=== PATIENT | male | born 1940 | race Caucasian/White ===

== ENCOUNTER 2022-11-14 12:16 | Emergency (ER) | payer MEDICARE, BC, SELFPAY ==
--- NOTE | ~2022-11-14 | XR_ITS ---
XR chest 2V DATE: 11/14/2022 12:47 INDICATION: Cough and shortness of breath for 4 days. Hyperglycemia. TECHNIQUE: PA and lateral views COMPARISON: None FINDINGS: Normal heart size. Aortic arch calcification. No hilar or mediastinal enlargement. No pulmonary infiltrate or consolidation, pleural effusion or pulmonary vascular congestion or pneumo thorax. 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 Degenerative spurring of the thoracic spine. IMPRESSION: No active cardiopulmonary disease Aortic atherosclerosis Reviewed, dictated and finalized at location B.
[2022-11-14 12:19] VITALS: BP 147/63; PULSE 68; RESP 18; TEMP 36.6; O2SAT 98
--- NOTE | 2022-11-14 14:55 | ED.GENADULT ---
HPI - General Adult General Chief complaint: Upper Respiratory Infection Stated complaint: cough/congestion/elevated blood glucose Time Seen by Provider: 11/14/22 13:54 History of Present Illness HPI narrative: 82-year-old male with history of diabetes presented to the emergency department for evaluation of nasal congestion and cough. Patient states symptoms started on Monday and have persisted throughout the weekend into today. Patient states his blood sugars have been running high so he was also concerned that he was having a infection of some sort. Patient denies any associated chest pain. Patient states he has had no shortness of breath. Patient's blood sugars prior to arrival running in the 400s. Patient does have a glucose monitor in place and they were 200 in the emergency department. Patient does take Lantus Humalog and Jardiance. Related Data Home Medications Medication Instructions Recorded Confirmed Claritin 10 mg PO DAILY 07/01/19 07/01/19 aspirin 81 mg chewable tablet 81 mg PO DAILY 07/01/19 07/01/19 insulin glargine 100 unit/mL 20 unit subcut HS 07/01/19 07/01/19 subcutaneous solution (Lantus U-100 Insulin) insulin lispro 100 unit/mL 1 sliding scale dose subcut 07/01/19 07/01/19 subcutaneous solution (Humalog USEASDIRECTD U-100 Insulin) lansoprazole 30 mg capsule,delayed 30 mg PO DAILY 07/01/19 07/01/19 release losartan 100 mg tablet 100 mg PO DAILY 07/01/19 07/01/19 nebivolol 20 mg tablet (Bystolic) 20 mg PO DAILY 07/01/19 07/01/19 rosuvastatin 40 mg tablet (Crestor) 40 mg PO DAILY 07/01/19 07/01/19 Allergies Allergy/AdvReac Type Severity Reaction Status Date / Time Penicillins Allergy Unknown Hives Verified 11/14/22 12:17 Review of Systems Review of Systems: All systems reviewed & are unremarkable except as noted in HPI and below PMFSH Past Medical History Medical History (Updated 11/14/22 @ 18:58 by Cayetano Mast MD) BPH (benign prostatic hyperplasia) Diabetes Glaucoma Hyperlipidemia Hypertension Melanoma Removed from his chest Seasonal allergies Surgical History Surgical History (Updated 07/01/19 @ 23:14 by Karissa Fernandez NP) H/O rectal polypectomy History of surgical removal of lesion Melanoma from the chest Family History Family History Mother Cerebrovascular accident Father Lung cancer Sibling Pancreatic cancer Social History Social History (Updated 07/01/19 @ 23:13 by Karissa Fernandez NP) Social History: The patient stated he lives with his and 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 The patient wishes to be a full code. He is retired from the [employer]. 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 He has 3 children Smoking packs per day: 1 Smoking cigarettes per day: 20.0 Years smoked: 32 Smoking pack-years: 32.00 Smoking status: Former smoker Tobacco type: cigarettes Alcohol intake: former Substance use: never Substance use type: does not use Living arrangements: with family Occupation/Education: retired Gender identity (if verbalized by the patient): Male Spiritual care concerns: No Agree to blood products: Yes Exam Narrative: APPEARANCE: Well appearing, no pain, no distress, well-nourished. HEAD: normocephalic, atraumatic. EYES: PERRLA/EOMI, conjunctivae clear. NOSE: Normal no drainage NECK: Supple. No adenopathy, no masses. RESPIRATORY: Airway patent, respirations nonlabored. Clear to auscultation bilaterally, no rales, rhonchi, wheezing. CARDIOVASCULAR: Regular rate and rhythm without murmurs rubs or gallops. ABDOMINAL: Soft, nontender, nondistended, normal bowel sounds MUSCULOSKELETAL: Moves all extremities. Strength/ROM intact, No edema, No calf tenderness. NEURO: Alert. Cranial nerves II through XII intact. SKIN: Warm, dry. Normal Color Course Course Emergency Course: 82-year-old male presented ED for evaluation of persistent cough. Aide
[2022-11-14] MEDS: ALBUTEROL SULFATE NEB 2.5 MG/3 ML INH INHALATION (15:03)
[2022-11-14 15:08] LABS: Influenza A QL RT-PCR Negative (Negative); Influenza B QL RT-PCR Negative (Negative); SARS-CoV-2 RNA PCR Negative (Negative)
[2022-11-14] MEDS: DOXYCYCLINE HYCLATE 100 MG TABLET PO (15:44)
[2022-11-14 15:48] VITALS: BP 143/76; PULSE 67; RESP 17; O2SAT 98
[2022-11-16 07:56] LABS: Glucose Point of Care 337 mg/dl (65-105)
== END 2022-11-14 15:49 | disposition home or self-care (01) ==
PROVIDERS: Emergency Provider Emergency Medicine
DX: J40 Bronchitis, not specified as acute or chronic (principal); E11.9 Type 2 diabetes mellitus without complications; I10 Essential (primary) hypertension; E78.5 Hyperlipidemia, unspecified; N40.0 Benign prostatic hyperplasia without lower urinary tract symptoms; H40.9 Unspecified glaucoma; Z87.891 Personal history of nicotine dependence; Z79.82 Long term (current) use of aspirin; Z79.4 Long term (current) use of insulin; Z20.822 Contact with and (suspected) exposure to COVID-19
CPT/HCPCS: 71046; 82948; 87636; 94640; 99283; A9270

== ENCOUNTER 2023-09-14 15:02 | Emergency (ER) | payer MEDICARE, BC, SELFPAY ==
--- NOTE | ~2023-09-14 | CT_ITS ---
EXAMINATION: CT brain wo con DATE: 09/14/2023 16:06 INDICATION: Right-sided headache. TECHNIQUE: Computed tomography (CT) of the head was performed without intravenous contrast. The mA wa s adjusted according to patient size. Iterative reconstruction technique was employed. The dose-lengt h product was 605.33 mGy-cm. COMPARISON: None FINDINGS: There is no intracranial hemorrhage, acute infarction, or abnormal intracranial mass lesion . The ventricles are normal in size. There are likely changes of ocular lens replacement surgeries. T here is mild mucosal thickening in the paranasal sinuses. The mastoid air cells are normal. IMPRESSION: 1. Normal brain. Reviewed, dictated and finalized at location A. IMPRESSION: 1. Normal brain.
[2023-09-14 15:07] VITALS: BP 144/120; PULSE 64; RESP 20; TEMP 36.7; O2SAT 96
[2023-09-14] MEDS: KETOROLAC 30 MG/ML VIAL (*BKC) IM (15:44)
[2023-09-14 16:13] LABS: Basophils Percent Auto 0.4 % (0.2-1.2); Eosinophils Absolute Auto 0.3 K/mm3 (0-0.3); Eosinophils Percent Auto 3.6 % (0-4.4); Hematocrit 40.2 % (42.0-52.0); Hemoglobin 13.5 g/dL (14.0-18.0); Immature Granulocyte Absolute 0.02 K/mm3 (0.00-0.031); Immature Granulocyte Percent A 0.3 % (0-0.5); Lymphocytes Absolute Auto 1.15 K/mm3 (0.9-3.2); Lymphocytes Percent Auto 16.1 % (18.3-44.2); Mean Corpuscular HGB Conc 33.6 g/dl (32-36); Mean Corpuscular Hemoglobin 30.3 pg (26-34); Mean Corpuscular Volume 90.1 fl (80-100); Mean Platelet Volume 10.1 fl (7.4-10.4); Monocytes Absolute Auto 0.5 K/mm3 (0.1-0.6); Monocytes Percent Auto 6.6 % (2.6-8.5); Neutrophils Absolute Auto 5.2 K/mm3 (1.3-6.7); Platelet Count Result 162 k/mm3 (150-375); Red Blood Count 4.46 M/mm3 (4.6-6.20); White Blood Count 7.1 K/mm3 (4.5-10.0)
[2023-09-14 16:24] LABS: Alanine Aminotransferase 18 U/L (6-50); Albumin Level 3.9 g/dL (3.5-5.1); Alkaline Phosphatase 84 U/L (38-126); Anion Gap 5 mmol/L (4-12); Aspartate Amino Transferase 26 U/L (17-59); Bilirubin,Total 0.5 mg/dL (0.2-1.3); Blood Urea Nitrogen 19 mg/dL (9-20); Carbon Dioxide 24 mmol/L (22-30); Chloride 106 mmol/L (98-107); Estimated CRCL calculation 48 ml/min; Estimated Glomerular Filt Rate > 60; Glucose 145 mg/dL (65-110); Potassium 4.4 mmol/L (3.4-5.0); Sodium 135 mmol/L (137-145)
[2023-09-14 16:48] LABS: Erythrocyte Sedimentation Rate 20 mm/hr (0-20)
[2023-09-14 17:25] VITALS: BP 145/98; PULSE 57; RESP 20; O2SAT 96
--- NOTE | 2023-09-14 17:42 | ED.EYEPROB ---
HPI - Eye Problem General Chief complaint: Eye Problems Stated complaint: headache with blurred vision Time Seen by Provider: 09/14/23 15:27 History of Present Illness HPI Narrative: Patient is an 82-year-old male who presents ER with a headache ongoing for last 2 days. Reports it feels like an ice cream headache has waxed and waned in intensity. He has tried no pain medication for. He does report mild blurring of his vision when he tries to drive due to the headache. No history of migraine. No trauma. He was going GI doctor but his PCP wanted him to come here to have a CT scan of his head so a left eye doctor. Patient does have history of glaucoma. 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 No flashes or floaters in the eye. Just occasional blurring. Related Data Home Medications Medication Instructions Recorded Confirmed Claritin 10 mg PO DAILY 07/01/19 07/01/19 aspirin 81 mg chewable tablet 81 mg PO DAILY 07/01/19 07/01/19 insulin glargine 100 unit/mL 20 unit subcut HS 07/01/19 07/01/19 subcutaneous solution (Lantus U-100 Insulin) insulin lispro 100 unit/mL 1 sliding scale dose subcut 07/01/19 07/01/19 subcutaneous solution (Humalog USEASDIRECTD U-100 Insulin) lansoprazole 30 mg capsule,delayed 30 mg PO DAILY 07/01/19 07/01/19 release losartan 100 mg tablet 100 mg PO DAILY 07/01/19 07/01/19 nebivolol 20 mg tablet (Bystolic) 20 mg PO DAILY 07/01/19 07/01/19 rosuvastatin 40 mg tablet (Crestor) 40 mg PO DAILY 07/01/19 07/01/19 Allergies Allergy/AdvReac Type Severity Reaction Status Date / Time Penicillins Allergy Unknown Hives Verified 09/14/23 15:14 Review of Systems Review of Systems: All systems reviewed & are unremarkable except as noted in HPI and below Constitutional: Constitutional: Reports no additional constitutional complaints ENT: Reports system reviewed and no additional complaints, except as documented Cardiovascular: Cardiovascular: Reports no additional cardiovascular complaints Respiratory: Respiratory: Reports no additional respiratory complaints Gastrointestinal: Gastrointestinal: Reports no additional gastrointestinal complaints Neurologic: Reports headache(s), Denies focal weakness, Denies loss of vision and Denies numbness PMFSH Past Medical History Medical History (Updated 09/14/23 @ 17:44 by Sebastian Lemus MD) BPH (benign prostatic hyperplasia) Diabetes Glaucoma Hyperlipidemia Hypertension Melanoma Removed from his chest Seasonal allergies Surgical History Surgical History (Updated 07/01/19 @ 23:14 by Karissa Fernandez NP) H/O rectal polypectomy History of surgical removal of lesion Melanoma from the chest Family History Family History Mother Cerebrovascular accident Father Lung cancer Sibling Pancreatic cancer Social History Social History (Updated 07/01/19 @ 23:13 by Karissa Fernandez NP) Social History: The patient stated he lives with his and 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 The patient wishes to be a full code. He is retired from the [employer]. 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 He has 3 children Smoking packs per day: 1 Smoking cigarettes per day: 20.0 Years smoked: 32 Smoking pack-years: 32.00 Smoking status: Former smoker Tobacco type: cigarettes Alcohol intake: former Substance use: never Substance use type: does not use Living arrangements: with family Occupation/Education: retired Gender identity (if verbalized by the patient): Male Spiritual care concerns: No Agree to blood products: Yes Exam Narrative: GENERAL: Well-appearing, well-nourished, and in no acute distress. HEAD: Normocephalic, atraumatic. EYES: PERRLA and EOMI. Right eye 20/30, left eye 20/40 with correction. Right eye pressure 13 mmHg and left eye pressure 9 mmHg. ENT: Mucous membranes moist. CHEST: Clear to auscultat
[2023-09-14 18:39] LABS: CRP 2.6 mg/dL (<1.0)
== END 2023-09-14 18:02 | disposition home or self-care (01) ==
PROVIDERS: Emergency Provider Emergency Medicine
DX: R51.9 Headache, unspecified (principal); N40.0 Benign prostatic hyperplasia without lower urinary tract symptoms; E11.39 Type 2 diabetes mellitus with other diabetic ophthalmic complication; I10 Essential (primary) hypertension; H42 Glaucoma in diseases classified elsewhere; Z85.820 Personal history of malignant melanoma of skin; Z87.19 Personal history of other diseases of the digestive system; Z87.891 Personal history of nicotine dependence; Z79.4 Long term (current) use of insulin; Z79.82 Long term (current) use of aspirin
CPT/HCPCS: 36415; 70450; 80053; 85025; 85652; 86140; 96372; 99284; J1885

== ENCOUNTER 2024-04-28 06:33 | Emergency (ER) | payer MEDICARE, BC, SELFPAY ==
--- NOTE | ~2024-04-28 | XR_ITS ---
Portable chest x-ray Comparison: 11/14/2022 Clinical History: Nausea and vomiting Findings: Lungs are clear, without focal consolidation or pleural effusion. Cardiomediastinal silho uette is stable. Bones and soft tissues are unremarkable. Impression: Clear lungs. Reviewed, dictated and finalized at location . N ROOM HOUSEPERSON Impression: Clear lungs.
--- NOTE | ~2024-04-28 | CT_ITS ---
CT of the Abdomen and Pelvis: Indication: Epigastric pain Technique: 2.5 mm axial scans were obtained through the abdomen and pelvis following intravenous adm inistration of 100 cc of Omnipaque 350. Dose reduction technique was used on this scan by utilizing a utomated exposure control and iterative reconstruction technique. The dose-length product (DLP) was 4 29.62 mGy-cm. Findings: Scans through the lung bases-a partially imaged focal airspace consolidation in the medial left lower lobe. The liver, spleen, pancreas, adrenals and kidneys are within normal limits. Gallstone present. No karlee dence of aortic aneurysm. No lymphadenopathy. No bowel obstruction or bowel wall thickening. Probable duodenal diverticulum at the distal duodenum. Images through the pelvis were performed. Urinary bladder unremarkable. Prostate gland mildly enlarge d. Small bilateral fat-containing inguinal hernias are present. No ascites. There is extensive degene rative spondylosis of the lumbar spine. Impression: Partially imaged focal airspace consolidation medial left lower lobe. Focal pneumonia is a considerat ion. Small bilateral fat-containing inguinal hernias. Reviewed, dictated and finalized at location . R AUTHORIZATION NURSE Impression: Partially imaged focal airspace consolidation medial left lower lobe. Focal pne umonia is a consideration. Small bilateral fat-containing inguinal hernias.
--- NOTE | ~2024-04-28 | CT_ITS ---
CT Scan of the Chest without Contrast: Clinical Indication: Right middle lobe pneumonia Technique: Contiguous sections were acquired throughout the chest without intravenous contrast. Dose reduction technique was used on this scan by utilizing automated exposure control and iterative recon struction technique. The dose-length product (DLP) was 259.15 mGy-cm. Findings: There is no evidence of any significant mediastinal, hilar or axillary lymphadenopathy. The mediastin al soft tissues appear normal. Minimal pericardial effusion noted. There is no evidence of pleural or pericardial effusion. There is patchy airspace consolidation left lower lobe, compatible with pneumonia. Right lung clear. Left upper lobe clear. Images through the upper abdomen reveal gallstone. Impression: Patchy left lower lobe pneumonia. Cholelithiasis. Reviewed, dictated and finalized at location . GER [employer] Impression: Patchy left lower lobe pneumonia. Cholelithiasis.
[2024-04-28 06:37] VITALS: BP 216/76; PULSE 98; RESP 20; TEMP 36.7; O2SAT 96
[2024-04-28 11:25] LABS: Glucose Point of Care 434 mg/dl (65-105)
[2024-04-28 11:28] LABS: Basophils Percent Auto 0.2 % (0.2-1.2); Hematocrit 40.7 % (42.0-52.0); Hemoglobin 13.3 g/dL (14.0-18.0); Immature Granulocyte Absolute 0.06 K/mm3 (0.00-0.031); Immature Granulocyte Percent A 0.5 % (0-0.5); Lymphocytes Absolute Auto 0.37 K/mm3 (0.9-3.2); Lymphocytes Percent Auto 2.9 % (18.3-44.2); Mean Corpuscular HGB Conc 32.7 g/dl (32-36); Mean Corpuscular Hemoglobin 30.6 pg (26-34); Mean Corpuscular Volume 93.6 fl (80-100); Mean Platelet Volume 10.3 fl (7.4-10.4); Monocytes Absolute Auto 0.7 K/mm3 (0.1-0.6); Monocytes Percent Auto 5.2 % (2.6-8.5); Neutrophils Absolute Auto 11.7 K/mm3 (1.3-6.7); Neutrophils Percent Auto 91.2 % (45.5-73.1); Platelet Count Result 179 k/mm3 (150-375); Red Blood Count 4.35 M/mm3 (4.6-6.20); Red Cell Distribution Width 12.3 % (11.5-14.5); White Blood Count 12.8 K/mm3 (4.5-10.0)
[2024-04-28 11:29] VITALS: BP 160/73; PULSE 91; RESP 16; TEMP 36.9; O2SAT 98
[2024-04-28] MEDS: SODIUM CHLORIDE 0.9% IV 1,000 ML 999 ML IV CONT (11:30)
[2024-04-28] MEDS: MAG HYDROX/AL HYDROX/SIMETH 30 ML UDC PO (11:30)
[2024-04-28] MEDS: FAMOTIDINE 20 MG/2 ML VIAL IV PUSH (11:31)
[2024-04-28] MEDS: ONDANSETRON INJ 4 MG/2 ML VIAL IV PUSH (11:31)
[2024-04-28] MEDS: HYDROmorphone HCL INJ (*CRX) 1 MG/ML SYR 0.5 MG IV PUSH (11:31)
[2024-04-28 11:33] LABS: Add Urine Microscopic? NO; Appearance Urine Clear (Clear); Bilirubin Urine Negative (Negative); Blood Urine Negative (Negative); Color Urine Yellow (Yellow); Glucose Urine UA 3+ mg/dL (Negative); Ketones Urine 2+ mg/dL (Negative); Leukocyte Esterase Ur Negative LEU/UL (Negative); Nitrate Urine Negative (Negative); Protein Urine Negative (Negative); Specific Grav Ur 1.033 (1.001-1.035); Urobilinogen Urine 0.2 mg/dL (<2.0); pH Urine 5.5 (5.0-9.0)
[2024-04-28 11:37] LABS: Lactic Acid Reflex 1.8 mmol/L (0.7-2.0)
[2024-04-28 11:39] LABS: Alanine Aminotransferase 25 U/L (6-50); Albumin Level 4.1 g/dL (3.5-5.1); Alkaline Phosphatase 119 U/L (38-126); Anion Gap 9 mmol/L (4-12); Aspartate Amino Transferase 32 U/L (17-59); Blood Urea Nitrogen 23 mg/dL (9-20); Calcium 8.9 mg/dL (8.4-10.2); Carbon Dioxide 23 mmol/L (22-30); Chloride 102 mmol/L (98-107); Estimated CRCL calculation 45 ml/min; Estimated Glomerular Filt Rate > 60; Glucose 428 mg/dL (65-110); Lipase 37 U/L (23-300); Magnesium 1.9 mg/dL (1.6-2.3); Phosphorus 3.4 mg/dL (2.5-4.5); Potassium 4.8 mmol/L (3.4-5.0); Sodium 134 mmol/L (137-145)
[2024-04-28 11:48] LABS: Prothrombin Time 13.8 Seconds (11.1-14.7)
[2024-04-28 11:49] LABS: Partial Thromboplastin Time 29.2 Seconds (22.3-36.8)
[2024-04-28 11:50] LABS: Troponin I < 0.012 ng/mL (0.000-0.034)
[2024-04-28 12:33] LABS: Influenza A QL RT-PCR Negative (Negative); Influenza B QL RT-PCR Negative (Negative); RSV RNA, RT-PCR Negative (Negative); SARS-CoV-2 RNA PCR Negative (Negative)
--- NOTE | 2024-04-28 14:02 | ED_ITS ---
HPI - General Adult General Chief complaint: Nausea/Vomiting/Diarrhea Stated complaint: n/v/d, sugar issues Time Seen by Provider: 04/28/24 10:54 History of Present Illness HPI narrative: This is an 83-year-old male presenting ED with chief complaint of epigastric pain. Patient has been having intermittent burning epigastric pain for the last several months and is actually scheduled for an endoscopy tomorrow at [facility]. However he came in this morning because overnight he started to have nausea and vomiting that was associated with his burning epigastric pain. He notes 1 episode of dark stools. Denies fevers chills chest pain or difficulty breathing. Patient is on a PPI. No other symptoms. Related Data Home Medications Medication Instructions Recorded Confirmed Claritin 10 mg PO DAILY 07/01/19 07/01/19 aspirin 81 mg chewable tablet 81 mg PO DAILY 07/01/19 07/01/19 insulin glargine 100 unit/mL 20 unit subcut HS 07/01/19 07/01/19 subcutaneous solution (Lantus U-100 Insulin) insulin lispro 100 unit/mL 1 sliding scale dose subcut 07/01/19 07/01/19 subcutaneous solution (Humalog USEASDIRECTD U-100 Insulin) lansoprazole 30 mg capsule,delayed 30 mg PO DAILY 07/01/19 07/01/19 release losartan 100 mg tablet 100 mg PO DAILY 07/01/19 07/01/19 nebivolol 20 mg tablet (Bystolic) 20 mg PO DAILY 07/01/19 07/01/19 rosuvastatin 40 mg tablet (Crestor) 40 mg PO DAILY 07/01/19 07/01/19 Allergies Allergy/AdvReac Type Severity Reaction Status Date / Time Penicillins Allergy Unknown Hives Verified 04/28/24 06:41 [facility] Past Medical History Medical History (Updated 04/28/24 @ 14:16 by Josiah Patten MD) BPH (benign prostatic hyperplasia) Diabetes Glaucoma Hyperlipidemia Hypertension Melanoma Removed from his chest Seasonal allergies Surgical History Surgical History (Updated 07/01/19 @ 23:14 by Karissa Fernandez NP) H/O rectal polypectomy History of surgical removal of lesion Melanoma from the chest Family History Family History Mother Cerebrovascular accident Father Lung cancer Sibling Pancreatic cancer Social History Social History (Updated 07/01/19 @ 23:13 by Karissa Fernandez NP) Social History: The patient stated he lives with his and 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 The patient wishes to be a full code. 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 He has 3 children Smoking packs per day: 1 Smoking cigarettes per day: 20.0 Years smoked: 32 Smoking pack-years: 32.00 Smoking status: Former smoker Tobacco type: cigarettes Alcohol intake: former Substance use: never Substance use type: does not use Living arrangements: with family Occupation/Education: retired Gender identity (if verbalized by the patient): Male Spiritual care concerns: No Agree to blood products: Yes Exam Narrative: APPEARANCE: No apparent distress. Head: atraumatic. EYES: EOMI, NOSE: Atraumatic NECK: Trachea midline RESPIRATORY: No increased rate of breathing, clear to auscultation CARDIOVASCULAR: RRR, ABDOMINAL: Tenderness palpation the epigastric area, no guarding or rebound RECTAL EXAM: Brown stool in the rectal vault, Hemoccult negative MUSCULOSKELETAl: No obvious deformities NEURO: Alert. Moving 4/4 extremities SKIN:: Warm, dry. Normal color PSYCHIATRIC: Normal affect Course Vital Signs Vital signs: Vital Signs Temperature 98.0 F 04/28/24 06:37 Pulse Rate 98 04/28/24 06:37 Respiratory Rate 20 04/28/24 06:37 Blood Pressure 216/76 H 04/28/24 06:37 Pulse Oximetry 96 04/28/24 06:37 Oxygen Delivery Room Air 04/28/24 06:37 Temperature 98.4 F 04/28/24 11:29 Pulse Rate 91 04/28/24 11:29 Respiratory Rate 16 04/28/24 11:29 Blood Pressure 160/73 H 04/28/24 11:29 Pulse Oximetry 98 04/28/24 11:29 Oxygen Delivery Room Air 04/28/24 06:37 Medical Decision Making MDM Narrative Medical decision making narrative: -Course: 83-year-old male presenting ED with nausea vomiting and epigastric pain. CT abdomen pelvis showed nothing in the abdomen that was concerning although it did catch possible pneumonia in the left lower lobe. CT diagnostic chest showed patchy infiltrates. Patient has no respiratory symptoms. When this was discussed with the patient turns out he is being followed by [employer] and has these imaged once a year. Patient was also concerned about dark stools. He had a brown stool on rectal exam. Hemoccult negative. His hemoglobin is 13.3. No concerns for massive GI bleed. He does have follow- up with his GI physician tomorrow to get an EGD and I have told him to bring this up with them in the morning. Re-evaluation patient's pain is improved. He is already on a PPI and I will add Carafate. Discharged follow-up with his GI physician tomorrow. Given return precautions for severe abdominal pain, bloody stools or bloody vomiting. -DDX includes but is not limited to: Peptic ulcer disease, gastritis, lower lobe pneumonia, GI bleed -Co-morbidities complicating care: Gastritis -Independent interpretation of studies: Labs reviewed, Imaging reviewed -Interventions: Zofran, Dilaudid, Maalox, normal saline -Shared decision making / Disposition: Discharged -RX Carafate Vital Signs Vital Signs: Vital Signs Temperature 98.0 F 04/28/24 06:37 Pulse Rate 98 04/28/24 06:37 Respiratory Rate 20 04/28/24 06:37 Blood Pressure 216/76 H 04/28/24 06:37 Pulse Oximetry 96 04/28/24 06:37 Oxygen Delivery Room Air 04/28/24 06:37 Temperature 98.4 F 04/28/24 11:29 Pulse Rate 91 04/28/24 11:29 Respiratory Rate 16 04/28/24 11:29 Blood Pressure 160/73 H 04/28/24 11:29 Pulse Oximetry 98 04/28/24 11:29 Oxygen Delivery Room Air 04/28/24 06:37 Lab Data 04/28/24 11:20 04/28/24 11:20 Labs: Lab Results 04/28/24 04/28/24 04/28/24 Range/Units 11:18 11:20 11:49 WBC 12.8 H (4.5-10.0) K/mm3 RBC 4.35 L (4.6-6.20) M/mm3 Hgb 13.3 L (14.0-18.0) g/dL Hct 40.7 L (42.0-52.0) % MCV 93.6 (80-100) fl MCH 30.6 (26-34) pg MCHC 32.7 (32-36) g/dl RDW 12.3 (11.5-14.5) % Plt Count 179 (150-375) k/mm3 MPV 10.3 (7.4-10.4) fl Immature Gran % (Auto) 0.5 (0-0.5) % Neut % (Auto) 91.2 H (45.5-73.1) % Lymph % (Auto) 2.9 L (18.3-44.2) % [place] % (Auto) 5.2 (2.6-8.5) % Eos % (Auto) 0.0 (0-4.4) % Baso % (Auto) 0.2 (0.2-1.2) % Lymph # (Auto) 0.37 L (0.9-3.2) K/mm3 [place]linger # (Auto) 0.7 H (0.1-0.6) K/mm3 Eos # (Auto) 0.0 (0-0.3) K/mm3 Baso # (Auto) 0.0 (0.0-0.1) K/mm3 Abs Immat Gran (auto) 0.06 H (0.00-0.031) K/mm3 Absolute Neuts (auto) 11.7 H (1.3-6.7) K/mm3 Absolute Nucleated RBC 0.000 (0.0-0.012) K/mm3 Nucleated RBC % 0.0 (0.0-0.2) % PT 13.8 (11.1-14.7) Seconds INR 1.0 APTT 29.2 (22.3-36.8) Seconds Sodium 134 L (137-145) mmol/L Potassium 4.8 (3.4-5.0) mmol/L Chloride 102 (98-107) mmol/L Carbon Dioxide 23 (22-30) mmol/L Anion Gap 9 (4-12) mmol/L BUN 23 H (9-20) mg/dL Creatinine 1.00 (0.7-1.3) mg/dL Estim Creat Clear Calc 45 ml/min Estimated GFR > 60 (59 - ) Glucose 428 H (65-110) mg/dL POC Capillary Glucose 434 H (65-105) mg/dl Lactic Acid 1.8 (0.7-2.0) mmol/L Calcium 8.9 (8.4-10.2) mg/dL Phosphorus 3.4 (2.5-4.5) mg/dL Magnesium 1.9 (1.6-2.3) mg/dL Total Bilirubin 1.0 (0.2-1.3) mg/dL AST 32 (17-59) U/L ALT 25 (6-50) U/L Alkaline Phosphatase 119 (38-126) U/L Troponin I < 0.012 (0.000-0.034) ng/mL Total Protein 7.0 (6.3-8.2) g/dL Albumin 4.1 (3.5-5.1) g/dL Lipase 37 (23-300) U/L Urine Color Yellow (Yellow) Urine Appearance Clear (Clear) Urine pH 5.5 (5.0-9.0) Ur Specific [place] 1.033 (1.001-1.035) Urine Protein Negative (Negative) mg/dL Urine Glucose (UA) 3+ H (Negative) mg/dL Urine Ketones 2+ H (Negative) mg/dL Ur Blood (Man) Negative (Negative) Urine Nitrate Negative (Negative) Urine Bilirubin Negative (Negative) Urine Urobilinogen 0.2 (<2.0) mg/dL Leukocyte Esterase Rfl Negative (Negative) ESDRAS/UL Influenza A (RT-PCR) Negative (Negative) Influenza B (RT-PCR) Negative (Negative) RSV (RT-PCR) Negative (Negative) SARS-CoV-2 RNA (RT-PCR) Negative (Negative) Discharge Plan Discharge Clinical Impression: Gastritis Patient Disposition: Home, Self-Care Condition: Stable Instructions: Antibiotic Form, Gastritis (DC), Diet for Stomach Ulcers and Gastritis (ED) Additional Instructions: You seen in the emergency department for epigastric abdominal pain. Believe this is due to gastritis or peptic ulcer disease. Please follow-up tomorrow morning at your scheduled EGD for further workup. Continue taking your acid inhibitor and add Carafate 3 times daily. Return if you develop severe pain, bloody vomiting stools Prescriptions: New sucralfate [Carafate] 1 gram tablet 1 g PO TID Qty: 90 0RF No Action doxycycline hyclate 100 mg capsule 100 mg PO BID 7 Days Qty: 14 0RF benzonatate 100 mg capsule 100 mg PO BID PRN (Reason: cough) Qty: 14 0RF Lantus U-100 Insulin 100 unit/mL Solution 20 unit SUBCUT HS lansoprazole 30 mg Capsule,Delayed Release(Dr/Ec) 30 mg PO DAILY aspirin 81 mg Tablet,Chewable 81 mg PO DAILY insulin lispro [Humalog U-100 Insulin] 100 unit/mL Solution 1 sliding scale dose SUBCUT USEASDIRECTD Rx Instructions: 12- 15 UNITS TID WITH MEALS AND 5 UNITS Q HS losartan 100 mg Tablet 100 mg PO DAILY rosuvastatin [Crestor] 40 mg Tablet 40 mg PO DAILY Bystolic 20 mg Tablet 20 mg PO DAILY Claritin 10 mg PO DAILY meclizine 12.5 mg tablet 6.25 mg PO TID PRN (Reason: dizziness) Qty: 20 0RF Rx Instructions: You can take 1/2 by mouth three times per day as needed for dizziness Follow-up/Referrals: Karissa Tena OD [Primary Care Provider] -
[2024-04-28 14:32] LABS: Troponin I < 0.012 ng/mL (0.000-0.034)
[2024-04-28 15:09] VITALS: BP 149/71; PULSE 89; RESP 16; TEMP 36.5; O2SAT 98
== END 2024-04-28 15:10 | disposition home or self-care (01) ==
PROVIDERS: Emergency Provider Emergency Medicine
DX: K29.70 Gastritis, unspecified, without bleeding (principal); Z20.822 Contact with and (suspected) exposure to COVID-19; I10 Essential (primary) hypertension; E11.39 Type 2 diabetes mellitus with other diabetic ophthalmic complication; H42 Glaucoma in diseases classified elsewhere; E78.5 Hyperlipidemia, unspecified; N40.0 Benign prostatic hyperplasia without lower urinary tract symptoms; Z85.820 Personal history of malignant melanoma of skin; Z86.0100 Personal history of colon polyps, unspecified; Z87.891 Personal history of nicotine dependence; Z79.82 Long term (current) use of aspirin; Z79.4 Long term (current) use of insulin; Z79.899 Other long term (current) drug therapy
CPT/HCPCS: 36415; 71045; 71250; 74177; 80053; 81003; 82948; 83605; 83690; 83735; 84100; 84484; 85025; 85610; 85730; 87637; 96361; 96374; 96375; 99284; A9270; J1171; J2405; J7030; Q9967

== ENCOUNTER 2025-02-17 06:35 | Emergency (ER) | payer MEDICARE, BC, SELFPAY ==
--- OUTSIDE RECORDS SUMMARY | 2018-06-15 04:45 | XMS_ITS | Continuity of Care Document ---
Author Organization [facility] Address [address] [facility] ut[address] Lizama [address] [place] [phone] Phone Care Team Providers Care Director Of Enterprise Applications Name Role Phone Silvino Oliva MD Unavailable Unavailable Allergies, Adverse Reactions, Alerts Substance Reaction Status Criticality PENICILLIN Active No Information Medications Medication Instructions Dosage Effective Dates (start - stop) Status Comments aspirin 81 mg tablet,delayed release take 1 tablet by oral route every day 81 MG - Active Bystolic 5 mg tablet take 1 tablet by or al route every day 5 MG - Active Humalog U-100 Insulin 100 unit/mL subcutaneous solution inject 1 unit by subcutaneous route every day per prescriber's instructions. Insulin dosing requires individualization. 1 unit - Active lansoprazole 30 mg capsule,delayed release take 1 capsule by oral route every day before a meal 30 MG - Active Lantus U-100 Insulin 100 unit/mL subcutaneous solution inject 1 unit by subcutaneous route every day per prescriber's instructions. Insulin dosing requires individualization. 1 unit - Active losartan 100 mg tablet take 1 tablet by oral route every day 100 MG - Active pravastatin 80 mg tablet take 1 tablet by oral route every day 80 MG - Active Procedures Procedure Date After Cataract Laser Surgery No Charge Refraction Post-op Follow-up Visit No Charge Refraction After Cataract Laser Surgery Eye Exam & Treatment No Charge Refraction Post-op Follow-up Visit Post-op Follow-up Visit Remove Cataract, Post Op Care 8 Remove Cataract, Insert Lens,Comanaged F IOLMaster-Professional Post-op Follow-up Visit No Charge Refraction Post-op Follow-up Visit Remove Cataract, Post Op Care 8 Remove Cataract, Insert Lens,Comanaged J IOLMaster-Professional No Charge Refraction IOLMaster-Technical No Charge Orbscan Eye Exam, New Patient Advance Directives Directive Yes / No Effective Date File Name No Information Encounters Encounter Description Practice Location Reason(s) For Visit Diagnoses Date Provider Providers Copied on Encounter [facility], [address] [place] [address] [address], [place], [place], [id number], tel:[phone] SEC [place] Professional 3 week s/p YAG PC (chief complaint) Encntr for f/u exam aft trtmt for cond oth than malig neoplmOther secondary cataract, right eye 9 Pj Dubois. [address], [facility] [place], [id number], [place]. tel:[phone] Referring Provider: Krystal Rodriguez, [facility] [address], [address]. tel:[phone] [facility], [address], [place], [place], [id number], [place] tel:[phone] SEC [place] Professional Yag eval (chief complaint) Presence of intraocular lensOther secondary cataract, bilateralOpt ic cupping of both eyesFuchs' corneal dystrophyTyp e 1 diabetes mellitus without complication sABMD (anterior basement membrane dystrophy) 8 Pj Dubois. [address], [facility] A, [place], [place], [id number], [place]. tel:[phone] Referring Provider: Krystal Rodriguez, [address], [address]. tel:[phone] [facility], [address] [place] [address] [address], [place], [place], [id number], tel:[phone] SEC [place] Professional No Information Dec-0 6-201 8 Edin Kevin. [address] [place] [address] Drive, [address], [place], [place], [id number], . tel:[phone] Referring Provider: Krystal Rodriguez, [address], [address]. tel:[phone] [facility], [address] [place] [address] [address], [place], [place], [id number], tel:[phone] SEC [place] Professional Post-Op (chief complaint) No Information Mar-0 9-201 8 Pj Dubois. [address] [facility] [place], [id number], [place]. tel:[phone] Referring Provider: Krystal Rodriguez, [address], [address]. tel:[phone] [facility], [address] [place] [address] [address], [place], [place], [id number], tel:[phone] [place] Post-Op (chief complaint) No Information Feb-2 0-201 8 Pj Dubois. [address] [employer], [facility] [place], [id number], [place]. tel:[phone] Referring Provider: Krystal Rodriguez, [address], [address]. tel:[phone] [facility], [address] [place] [address] [address], [place], [place], [id number], [place] tel:[phone] SEC [place] Professional Post-Op (chief complaint) No Information Feb-0 8-201 8 Sally Golden. [address] [facility], [address], [place], [id number], . tel:[phone] Referring Provider: Krystal Rodriguez, [address], [address]. tel:[phone] [facility], [address] [place] [address] [address], [place], [place], [id number], tel:[phone] [place] [address] No Information 0 8 Pj Dubois. [address] [facility], [facility] [place], [id number], [place]. tel:[phone] Referring Provider: Krystal Rodriguez, [address], [facility]. tel:[phone] [facility], [address] [place] [address] [address], [place], [place], [id number], [place] tel:[phone] [facility] N Sam No Information 0 8 Pj Dubois. [address] [facility], [facility] [place], [place], [id number], [place]. tel:[phone] Referring Provider: Krystal Rodriguez, [address], [address]. tel:[phone] [facility], [address] [place] [address] [address], [place], [place], [id number], [place] tel:[phone] SEC Harsh SHEILA Professional 2 wk CE PO (chief complaint) No Information 8 Sally Golden. [address] [facility], [facility] [place], [place], [id number], . tel:[phone] Referring Provider: Krystal Rodriguez, [address], [address]. tel:[phone] [facility], [address] [place] [address] [address], [place], [place], [id number], [place] tel:[phone] SEC Harsh SOSA Professional 1 wk CE PO (chief complaint) No Information 8 Pj Dubois. [address] [facility], [address] [place], [id number], [place]. tel:[phone] Referring Provider: Krystal Rodriguez, [address], [address]. tel:[phone] [facility], [address] [place] [address] [address], [place], [place], [id number], [place] [phone] SEC Harsh SOSA Professional Post-Op (chief complaint) No Information 8 Sally Knightel. [address] [facility], [facility] [address], [place], [place], [address], [place]. tel:[phone] Referring Provider: Krystal Rodriguez, [address], [address]. tel:[phone] [facility], [address], [place], [place], [address], [place] [phone] [facility] No Information 8 Pj Dubois. [address] [facility], [address] [place], [address], [place]. tel:[phone] Referring Provider: Krystal Rodriguez, [address], [address]. tel:[phone] [facility], [address], [place], [place], [address], [place] [phone] SEC Sridhar Reyes No Information 8 Pj Dubois. [address] [facility], [address] [place], [id number], [place]. tel:[phone] Referring Provider: Krystal Rodriguez, [address], [address]. tel:[phone] [facility], [address] [place] [address], [id number], tel:[phone] SEC Harsh SOSA Professional Cataract evaluation (chief complaint) No Information Dec-0 7 Pj Dubois. [address] [facility], [facility] [place], [place], [id number], . tel:[phone] Referring Provider: Krystal Rodriguez, [address], [address]. tel:[phone] [facility], [address] [place] [address], [id number], tel:[phone] SEC [place] SHEILA Professional No Information Dec-0 Pj Dubois. [address] [facility] [place], [facility] [place], [place], [id number], . tel:[phone] Family History Family Member Type Diagnosis Age At Onset Mother Problem (finding) glaucoma Payers Payer name Insurance type Covered constitution party ID Authoriza tion(s) [place] [id number] [id number] Social History Type Description Quantity Date Captured Comments Alcohol Use Details No Caffeine Use Details coffee and soda 9 Tobacco Use Status Ex-cigarette smoker 019 Smoking Status Former smoker Smoking Tobacco Use Details Cigarette: Age Stopped: 48
Cigar: Age Stopped: 48
Pipe: Age Stopped: 48 Cigarette: No Details Available Cigar: No Details Available Pipe: No Details Available Sex Male Chief Complaint And Reason For Visit From encounter dated '06/15/2018 09:45'. 3 week s/p YAG PC (chief complaint). Description: The 77 year old male presents for evaluation of 3week s/p YAG PC in the left eye and YAG PC OD today. Patient states VA seems fine with the left eyesince the laser not much of a change. c/o with the right eye is difficulty seeing in bright light and glare at night. Patient uses Rhopressa qd OU last used @ last night. (unable to pull medication up in med module) Reason For Referral Reason For Referral No Information Plan Of Treatment Date Type Action Status Patient Education Learning About YAG Lase r Capsulotomy completed Patient Education Learning About YAG Lase r Capsulotomy completed History Of Present Illness Encounter Date Complaint History Of Prese nt Illness 3 week s/p YAG PC The 77 year ol d male presents for evaluation of 3 week s/p YAG PC in the left eye and YAG PC OD today. Patient states VA seems fine with the left eye since the laser not much of a change. c/o with the right eye is difficulty seeing in bright light and glare at night. Patient uses Rhopressa qd OU last used @ last night. (unable to pull medication up in med module) Yag eval The 77 year old male presents for evaluation of Yag eval in the left eye. Hx of PC IOL OU, PCO OS, POAG OU, and Punctate Keratitis OS. Pt using Rhopressa OU bid. (Rhopressa is not in the medication module) Pt states difficult to drive at night due to headlight glare, and difficult to see small print. DVA and NVA gradual decrease OS x 8 mos. 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 Post-Op The 76 year old male presents for a 1 month post op CE OS. Patient is pseudo ou. Patient is finished with drops. Patient states ou is doing good. Post-Op The 76 year old male presents for a 1 week post op CE OS. Patient is using Pred, Ketorolac and Vigamox tid OS. Patient states ou is doing good. Post-Op The 76 year old male presents for a 1 day post op CE OS. Patient to begin Pred and Vigamox qid OS and Ketorolac tid OS. Patient denies any pain or discomfort. 2 wk CE PO The 76 year old male presents for 2 wk CE PO in the right eye. Pt is IDDM I. Pt reports he is using Ketorolac TID OD, and Pred TID OD. Pt reports he hasn't been using the Brimonidine and he is unsure if he was supposed to be using them. Pt denies any pain, irritation or discomfort today, OU. Pt reports he can see a lot better since CE, OD. Pt reports he still has a hard time driving at night due to glare from oncoming headlights and troube reading small print up close, OS, x several mos now, even when he is wearing his gls. 1 wk CE PO The 76 year old male presents for 1 wk CE PO in the right eye. Pt is IDDM II. Pt reports he is using Vigamox TID OD, Pred TID OD, and Ketorolac TID OD. Pt reports he no longer uses the Brimonidine. Pt reports he can see a lot better since CE, OD. Pt denies any pain, irritation or discomfort today, OU. Post-Op The 76 year old male presents for a 1 day post op CE OD. Patient to begin Pred, Vigamox and Ketorolac qid OD. Patient denies any pain or discomfort. Cataract evaluation The 76 year old male presents for Cataract evaluation in the right eye and left eye. Type 1 Diabetic. Hx POAG OU, Cataracts OU. Pt states can see ok, but over the last yr keeps needing stronger glasses, has to use a microscope to see smaller print, avoids night driving due to glare of headlights. Pt not currently using any gtts, has been perscribed a gtts for ocular hypertension, but has not taken it yet, denies any pain or discomfort at this time. Pt having trouble doing close work due to vision loss. Functional Status Date Functional Assessmen t No Information Instructions Date Instruction Ovidio zarate Impression/Plan Impression/Plan Impression/Plan Impression/Plan - 1 week PO s/p Phaco with IOL OS:- IOL in good position; healing well.- Patient advised they no longer need to wear the shield over the eye at bedtime.- Medication instillation and post op instructions reviewed.- Patient will return in 3 weeks or sooner with problems. Follow up - As scheduled Impression/Plan - Po st-op instructions given. Instructed to continue Vigamox and Prednisolone qid and Ketorolac tid in left eye.Return in 1 week. Related to Post-op cataract surgery left eye Combined forms of ag e-related cataract, left eye - Educational material given Related to Combined forms of age-related cataract, left eye Impression/Plan - Co ntinue Pred and Ketorolac until out. OK to proceed with left cataract surgery.Aware may still need glasses with prism and near correction. Post-op cataract gilmar maxwell right eye - Medication use reviewed Related to Post-op cataract surgery right eye Post-op cataract gilmar maxwell right eye - Post op instructions reviewed and understood by patient Related to Post-op cataract surgery right eye Impression/Plan - On e week post-op s/p CE/PCIOL OD- IOL in great position; healing well- IOP well controlled- Activities restrictions and shield use reviewed- Medication instillation and post op instructions reviewed- Patient will return as scheduled, sooner if any problems. Follow up - Patient will return as scheduled, sooner if any problems. Impression/Plan - In stilled one drop of Combigan OD.Post-op instructions given. Instructed to continue Vigamox and Prednisolone qid and Ketorolac tid in right eye.Return in 1 week. Related to Post-op cataract surgery right eye Age-related nuclear cataract, bilateral - Surgical risks, alts and benefits discussed Related to Age-related nuclear cataract, bilateral Impression/Plan - Di abetes (Type I) Without Ocular Complications- No background diabetic retinopathy and no signs of neovascularization noted.- Ocular and systemic benefits of good blood sugar control discussed with patient.- Dr. Morgan is in contact with PCP yearly. Significant Cataracts OU- Cataracts OU account for patient's visual complaints.- Discussed all R/B/A pertaining to cataract surgery.- The procedure and recovery from cataract extraction were discussed.- Recommend phacoemulsification with intraocular lens implant.- Lifestyle lenses discussed. - Significant astigmatism OU.- The possibility that patient may still need to wear glasses to correct astigmatism and/or for reading vision following surgery reviewed and understood by patient.- Discussed Fuch's dystrophy and the possibility of increased healing time after CE.- The patient is not a good candidate for specialty lenses due to type I diabetes and double vision without prism.- ECP not recommended at this time.- Schedule CE OD with Standard IOL for distance, followed by CE OS with Standard IOL for distance. 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 Morgan.- Dr. Morgan started on Brimonidine, patient has not picked up Rx yet.- IOP WNL today.- Discussed normal tension glaucoma.- Begin Brimonidine OU as prescribed by Dr. Morgan.- ECP not recommended at this time.- Continue to monitor with Dr. Morgan.*Possible Schugarcaine*Referred by Dr. Morgan Follow up - Schedule CE OD with Standard IOL for distance, followed by CE OS with Standard IOL for distance. Assessments Type Assessment Date assessment Encntr for f/u exam aft trtmt fo r cond oth ebonie gonzalez assessment Other secondary cataract, right eye Patient Care Teams Name Effective Dates (start - stop) Status Members No Information
--- OUTSIDE RECORDS SUMMARY | 2023-04-27 08:30 | XMS_ITS | Continuity of Care Document ---
Author Organization [facility] Address [address] [facility] [address] [place] [address] Phone Care Team Providers Care Electrification Adviser Name Role Phone Izabel Velez OT Unavailable Unavailable Procedures Procedure Date Therapeutic Activities Neuromuscular Re-Ed Therapeutic Exercise Hot or Cold Pack Progress Note Therapeutic Activities Neuromuscular Re-Ed Therapeutic Exercise Hot or Cold Pack Therapeutic Activities Neuromuscular Re-Ed Hot or Cold Pack Therapeutic Activities Neuromuscular Re-Ed Hot or Cold Pack Therapeutic Activities Therapeutic Exercise Manual Therapy Hot or Cold Pack Therapeutic Activities Therapeutic Exercise Hot or Cold Pack FO pip/dip with joint/spring prefab Therapeutic Activities Neuromuscular Re-Ed Therapeutic Exercise Hot or Cold Pack Progress Note Therapeutic Activities Therapeutic Exercise Manual Therapy Hot or Cold Pack Therapeutic Activities Neuromuscular Re-Ed Hot or Cold Pack Orthotic Mgmt And Training Subsequent En counter Therapeutic Activities Hot or Cold Pack Orthotic Mgmt And Training Subsequent En counter Doc neg elder mal no plan OT Evaluation Low Complexity Therapeutic Activities Orthotic Mgmt and Training WHFO rigid w/o joints CF Advance Directives Directive Yes / No Effective Date File Name No Information Encounters Encounter Description Practice Location Reason(s) For Visit Diagnoses Date Provider Providers Copied on Encounter [facility], [address], [place], [place], [id number], tel:[phone] [place] No Information 3 Agustin Paiz. . Referring Provider: Sandra Urena [facility] [address]B/12A, [place], [address]. tel:[phone] [place] [address] [address], [place], [place], [id number], tel:[phone] [place] No Information 3 Agustin Paiz. . Referring Provider: Sandra Urena [facility] [address]/6B/12, [place], [address]. tel:[phone] [place] [address] [address], [place], [id number], tel:[phone] [place] No Information 3 Agustin Paiz. . Referring Provider: Sandra Urena [address], [place], [address]. tel:[phone] [place] [address] [address], [place], [place], [id number], tel:[phone] [place] No Information 3 Agustin Paiz. . Referring Provider: Sandra Urena [address]B/12A, [place], [address]. tel:[phone] [place] [address], [address], [place], [place], [id number], [place] tel:[phone] [place] No Information 3 Agustin Izabel. . Referring Provider: Farhad Loera, Joaquin[address] [facility] [address]6B/12A, [place], [address]. tel:[phone] [place] [address], [place], [place], [id number], [place] tel:[phone] [place] No Information 3 Agustin Izabel. . Referring Provider: Farhad Loera, Sandra [facility] [address]A/6B/12A, [place], [address]. tel:[phone] [place] [address], [address], [place], [place], [id number], [place] tel:[phone] [place] No Information 3 Agustin Izabel. . Referring Provider: Farhad Loera, Joaquin[address] [facility] [address]A/6B/12A, [place], [address]. tel:[phone] [place] [address], [place], [place], [id number], [place] tel:[phone] [place] No Information 3 Agustin Izabel. . Referring Provider: Farhad Loera, Joaquin[address] [facility] [address]A/6B/12A, [place], [address]. tel:[phone] [place] [address], [address], [place], [id number], [place] tel:[phone] [place] No Information 3 Agustin Izabel. . Referring Provider: Farhad Loera, [address]B/12A, [place], [address]. tel:[phone] [place] [address], [address], [place], [id number], [place] tel:[phone] [place] No Information 3 Agustin Paiz. . Referring Provider: Farhad Loera [address], [place], [address]. tel:[phone] [facility], [address] [facility] [address], [place], [place], [id number], tel:[phone] [place] No Information 3 Agustin Paiz. . Referring Provider: Farhad [facility]era [address] [facility] [address], [place], [address]. tel:[phone] Family History Family Member Type Diagnosis Age At Onset No Information Payers Payer name Insurance type Covered democrat ID Authorherberta dakota(s) Medicare [place] [id number] [facility] [id number] Social History Type Description Quantity Date Captured Comments Sex Male Smoking Status No Information Chief Complaint And Reason For Visit No Information Reason For Referral Reason For Referral No Information History Of Present Illness Encounter Date Complaint History Of Prese nt Illness No Information Functional Status Date Functional Assessmen t No Information Instructions Date Instruction Additional Infor mation Prescribed activity/exercise edu cation Related to Overweight Dietary needs education Related to Overweight Assessments Type Assessment Date No Information Patient Care Teams Name Effective Dates (start - stop) Status Members No Information
--- NOTE | ~2025-02-17 | XR_ITS ---
EXAMINATION: XR chest 1V portable DATE: 02/17/2025 06:58 INDICATION: Cough TECHNIQUE: frontal view of the chest was obtained. COMPARISON: Chest radiograph and CT dated 04/28/2024 FINDINGS: The lungs are clear with no focal airspace opacities, pulmonary edema, pleural effusion or pneumothorax. The cardiomediastinal silhouette is normal. IMPRESSION: 1. No acute cardiopulmonary disease. Reviewed, dictated and finalized at location A.
--- OUTSIDE RECORDS SUMMARY | 2025-02-17 06:38 | XMS_ITS ---
Author Organization [facility] Address [address] [place] [address] Care Team Providers Care Ventilation Mechanic Name Role Phone Elizabet De León MD Primary Care Provider Brandi Armenta DO Unavailable [phone] Shanel Lowery Unavailable [phone] Active Problems Patient Care Coordination No te Formatting of this note migh t be different from the original. This is a 77-year-old male with a medical history significant for diabetes, hypertension, melanoma, and hyperlipidemia. He is a former smoker and underwent a lung cancer screening CT scan in November of 2014 that demonstrated an 8 mm ground- glass nodule in the right upper lobe. There is also a 5 mm noncalcified nodule in the right upper lobe as well. He continued to undergo annual screening and his CT scans have remained stable until his most recent 1 which was on 01/08/2018 that demonstrated an interval growth of the right upper lobe ground-glass opacity now measuring 12 mm in size. He is here for further surgical evaluation. 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 Sx resolved with IVF - Request bMRI today - CTM. He will notify me if sx return. Dupuytren's contracture of right hand 07/16/2019 Overview (07/16/2019): Added automatically from request for surgery [id number] Assessment & Plan (08/11/2019 9:46 PM SALES RECEPTIONIST): Plan for operative release with Dr. Loera. - F/u with Dr. Loera for surgery Sensorineural hearing loss (SNHL) of both ears 0 03/08/2019 Assessment & Plan (08/11/2019 9:41 PM SALES RECEPTIONIST): Cont f/u with ENT/ audiology Assessment & Plan (03/08/2019 1:41 PM CDT): This has been present for several years. He is now interested in hearing aids. We will set him up with a hearing aid evaluation as he is likely to benefit from them. Repeat audiogram in 1-2 years. Erectile dysfunction due to arterial insufficien cy 01/15/2018 History of melanoma in situ 09/22/2015 Elevated prostate specific antigen (PSA) 015 Assessment & Plan (08/11/2019 9:45 PM SALES RECEPTIONIST): F/b Dr. Tinsley. Mildly elevated PSA with abnormal WILLIE. - Pt elected to continue to be screened. Dr. Tinsley advised prostate MRI if PSA were to remain elevated at or above 5. Seborrheic keratosis, inflamed 07/15/2014 Melanoma in situ of trunk 02/11/2014 Assessment & Plan (08/11/2019 9:42 PM SALES RECEPTIONIST): Chest, s/p WLE. - Cont f/u with Dr. Canseco - Rec photoprotection, ABCDEs Seborrheic keratoses 11/12/2013 HTN (hypertension), benign 10/26/2013 Overview (09/15/2016): BENIGN HYPERTENSION Assessment & Plan (08/11/2019 9:48 PM SALES RECEPTIONIST): Above goal today, home pressures 130-140/60-80. - Given hx of dizziness, will plan to continue losartan 100mg every day for now - He will continue to monitor his blood pressures. Dyslipidemia 10/26/2013 Overview (01/15/2018): Hyperlipidemia LDL goal < 100 Assessment & Plan (08/11/2019 9:42 PM SALES RECEPTIONIST): Controlled on current regimen - Cont rosuvastatin 40mg every day Type 1 diabetes mellitus 10/26/2013 Overview (01/15/2018): Diabetes mellitus type 1, controlled Assessment & Plan (08/11/2019 9:41 PM SALES RECEPTIONIST): Control is stable. F/b Dr. Armenta. Medication regimen: lantus 20 units qhs and change unit:CHO to 1unit:8g at breakfast and 1unit:10g with each meal + 1 unit for every 40 > 120. Counseled regarding need to limit snacking between meals or discuss how to cover with short acting insulin. HbA1c Lab Results Component Value Date HGBA1C 8.4 05/21/2019 Microalbumin/Creatinine: Undetectable 05/2019 ACEi/ARB prescribed yes Statin prescribed yes Foot/extremity exam performed 07/2019, protective sensation intact Retinopathy screening performed 07/2019, mild Pt counseled regarding diet, physical activity, medication adherence Spinal stenosis of lumbar region 04/19/2013 Osteoarthritis of lumbar spine 04/19/2013 Actinic keratosis 09/17/2012 Knee pain 01/31/2011 Ground glass opacity present on imaging of lung Current Treatment and Therapy Plans No current plan information found. Past Treatment and Therapy Plans No past plan information found. Lifetime Dose Tracking * Chemical Lifetime Dose Automatic Entry Manual Entr y Fluoro Time 9 minutes 0 minutes 9 minutes Air kerma at the reference point (Ka,r) 415 mGy 0 mGy 415 mGy DLP 3,939 mGycm 3,939 mGycm 0 mGycm DAP 23.18 Gy-cm2 0 Gy-cm2 23.18 Gy-cm2 Resolved Problems Problem Noted Date Diagnosed Date Resolved Date Acute maxillary sinusitis 11/27/2017 Pneumonia of both lower lobe s due to infectious organism 11/27/2017 08/11/2019 Lentigo 01/18/2017 08/11/2019 Aphthous ulcer 07/20/2016 08/11/2019 Benign neoplasm of skin of trunk 07/20/2016 08/11/2019 Angular cheilitis 05/19/2015 08/11/2019 Suture granuloma 03/18/2014 08/11/2019 Allergic contact dermatitis 01/07/2014 08/11/2019 Impetigo 01/07/2014 08/11/2019 Chronic pain 04/19/2013 08/11/2019 Encounter for preventive health examination 02/22/2010 08/11/2019
--- OUTSIDE RECORDS SUMMARY | 2025-02-17 06:38 | XMS_ITS | Clinical Summary ---
Author Organization [facility] Address [address] [place] [address] Care Team Providers Care Corn Breeder Name Role Phone Brandi Armenta DO Primary Care Provider Source Comments [facility],non-owned Affiliates and Associated Physician Practices is amultiple site organization consisting of ambulatory clinics and hospital sitesin [place], [place], [place] and [place]. This disclosure is being madepursuant to the Care Everywhere program and may not contain all information available regarding this patient. Last updated 18.[facility] Allergies Active Allergy Reactions Criticality Noted Date Comments Penicillins Rash Low 02/08/2016 Medications * Be aware that medications may not be up to date on this document. Alwaysverify current medications with the patient. insulin lispro (HUMALOG) 100 UNIT/ML cartridge Ac tive Insulin Glargine (LANTUS SC) Active PRAVASTATIN SODIUM PO Active Aspirin (ASPIR-81 PO) Active LANSOPRAZOLE PO Acti ve LOSARTAN POTASSIUM PO Active Active Problems No known active problems Social History Tobacco Use Types Packs/Day Years Used Date Smoking Tobacco: Never Assessed Sex and Gender Information Value Date Recorded Sex Assigned at Not on file Legal Sex Male 8:22 AM CDT Gender Identity Not on file Sexual Orientation Not on file Last Filed Vital Signs Vital Sign Reading Time Taken Comments Blood Pressure 132/74 02/08/2016 9:08 AM CDT Pulse 72 02/08/2016 9:08 AM CDT Temperature 36.7 C (98 F) 02/08/2016 9:08 AM CDT Respiratory Rate 20 02/08/2016 9:08 AM CDT Oxygen Saturation - - Inhaled Oxygen Concentration - - Weight 74.8 kg (165 lb) 02/08/2016 9:08 AM CDT Height 170.2 cm (5' 7) 02/08/2016 9:08 AM CDT Body Mass Index 25.84 02/08/2016 9:08 AM CDT Plan of Treatment Health Maintenance Due Date Last Done Comments DTAP/TDAP/TD VACCINES (1 - Tdap) 1957 PNEUMOCOCCAL VACCINE 50+ (1 of 1 - PCV) 1988 ZOSTER VACCINE (1 of 2) 1988 Respiratory Syncytial Virus (RSV) Vaccine Pt: or over 60 yrs (1 - 1-dose 75+ series) 2013 DEPRESSION SCREENING 06/12/2024 COVID-19 VACCINE (1 - 2023-2 5 season) 2025 INFLUENZA VACCINE (#1) 2025 HEPATITIS B VACCINE Aged Out No longe r eligible based on patient's age to complete this topic HIB VACCINE Aged Out No longer eligi ble based on patient's age to complete this topic HPV VACCINE Aged Out No longer eligi ble based on patient's age to complete this topic MENINGOCOCCAL (Group B) VACC INE SHARED DECISION-MAKING Aged Out No longer eligibl e based on patient's age to complete this topic MENINGOCOCCAL GROUPS A/C/Y/W VACCINE Aged Out No longer eligible b ased on patient's age to complete this topic Insurance [facility]IC[facility] MEDICARE MEDICARE [facility] Care Teams Corn Breeder Relationship Specialty Start Date End Date Brandi Armenta DO PCP - General Immunology 02/08/16
--- OUTSIDE RECORDS SUMMARY | 2025-02-17 06:38 | XMS_ITS | Encounter Summary ---
Author Organization [facility] Address [address] [place] [address] Care Team Providers Care Bisque Finisher Name Role Phone Brandi Armenta DO Primary Care Provider No, Physician Primary Care Provider [phone] Elizabet De León MD Primary Care Provider Brandi Armenta DO Unavailable [phone] Shanel Lowery Unavailable [phone] Encounter Details Date Type Department Care Team (Late st Contact Info) Description 12/07/2017 Community Orders [facility] EpicCare Link Brandi Armenta DO [address] [place] [address] Pneumonia of both lower lobes due to infectious organism (CMS/HCC) (Primary Dx); Lung nodule Social History Tobacco Use Types Packs/Day Years Used Date Smoking Tobacco: Former Alcohol Use Standard Drinks/Week Comments No 0 (1 standard drink = 0.6 oz pur e alcohol) Sex and Gender Information Value Date Recorded Sex Assigned at Not on file Legal Sex Male 12:14 AM RECYCLING SPECIALIST Gender Identity Male 06/27/2020 6:23 AM RECYCLING SPECIALIST Sexual Orientation Not on file documented as of this encounter Plan of Treatment Scheduled Procedures Name Priority Associated Diagnoses Date/Ti me ESOPHAGOGASTRODUODENOSCOPY Open Access Gastroesophageal reflux disease, unspecified whether esophagitis present documented as of this encounter Results * CT Chest WO Contrast (01/08/2018 10:22 AM CDT) Anatomical Region Laterality Modality Body N/A Computed Tomogra phy 01/08/2018 11:2 6 AM CDT Impressions 01/08/2018 12:20 PM CDT 1. Interval growth of right upper lobe groundglass opacity measuring 12 mm may represent minimally invasive adenocarcinoma spectrum lesion. Recommend follow up with low-dose CT chest in one year to monitor. Electronically signed by: Dominic Pisano M.D. Narrative 01/08/2018 12:20 PM CDT EXAMINATION: CT chest without contrast HISTORY: 77-year-old male with past medical history of lung RADS category 2 pulmonary nodule TECHNIQUE: Computed tomography of the chest was performed without intravenous contrast according to standard protocol. COMPARISON: CT chest without contrast dated 01/06/2017 FINDINGS: A right upper lobe groundglass opacity measuring 12 mm with ill-defined margins and no solid components is noted at slide position: -71. This pulmonary nodule has increased in size relative to prior study and may represent minimally invasive adenocarcinoma (previously 9 mm). A right upper lobe solid, calcified pulmonary nodule measuring 5 mm in average diameter noted slight position: -151 is unchanged in size relative to prior study and represents a granuloma. No evidence of focal consolidation, pleural effusions, edema, or pneumothorax. The trachea appears normal. No hilar, mediastinal, supraclavicular, or axillary lymphadenopathy is demonstrated. The heart size is normal without pericardial effusion. The spleen, pancreas, adrenal glands, stomach, and proximal small bowel appear normal. Procedure Note Dominic Pisano MD PhD - 01/08/2018 EXAMINATION: CT chest without contrast HISTORY: 77-year-old male with past medical history of lung RADS category 2 pulmonary nodule TECHNIQUE: Computed tomography of the chest was performed without intravenous contrast according to standard protocol. COMPARISON: CT chest without contrast dated 01/06/2017 FINDINGS: A right upper lobe groundglass opacity measuring 12 mm with ill-defined margins and no solid components is noted at slide position: -71. This pulmonary nodule has increased in size relative to prior study and may represent minimally invasive adenocarcinoma (previously 9 mm). A right upper lobe solid, calcified pulmonary nodule measuring 5 mm in average diameter noted slight position: -151 is unchanged in size relative to prior study and represents a granuloma. No evidence of focal consolidation, pleural effusions, edema, or pneumothorax. The trachea appears normal. No hilar, mediastinal, supraclavicular, or axillary lymphadenopathy is demonstrated. The heart size is normal without pericardial effusion. The spleen, pancreas, adrenal glands, stomach, and proximal small bowel appear normal. IMPRESSION: 1. Interval growth of right upper lobe groundglass opacity measuring 12 mm may represent minimally invasive adenocarcinoma spectrum lesion. Recommend follow up with low-dose CT chest in one year to monitor. Electronically signed by: Dominic Pisano M.D. Brandi Armenta DO IMG CT PROCEDURES Final Result documented in this encounter Visit Diagnoses Diagnosis Pneumonia of both lower lobes due to infectious organism- Primary Lung nodule Other diseases of lung, not elsewhere classified Pneumonia of both lower lobes due to infectious organism Lung nodule Other diseases of lung, not elsewhere classified documented in this encounter Additional Health Concerns Infection Onset Date Last Indicated Resolved Time COVID: Suspected 05/06/2022 05/06/2022 05/06/2022 10:08 AM RECYCLING SPECIALIST documented as of this encounter Care Teams Bisque Finisher Relationship Specialty Start Date End Date Brandi Armenta DO PCP - General 11/03/16 07/03/19 No, Physician PCP - General 07/04/19 07/07/19 Elizabet De León MD [address] [place] [address] PCP - General Internal Medicine 07/08/19 Brandi Armenta DO [address] [facility] [address] [place] [address] Consulting Physician Endocrinology Diabetes & Metabolism 03/19/19 Shanel Lowery PA [id number] [place] [address] Physician Supervisor [employer] Colon and Rectal Surgery 05/16/24 documented as of this encounter
--- OUTSIDE RECORDS SUMMARY | 2025-02-17 06:38 | XMS_ITS | Clinical Summary ---
Author Organization [facility] Address [address] [place] [address] Care Team Providers Care Station Inspector Name Role Phone Elizabet De León MD Primary Care Provider Brandi Armenta DO Unavailable [phone] Shanel Lowery Unavailable [phone] Allergies Active Allergy Reactions Criticality Noted Date Comments Penicillins Rash Medium 02/08/2016 Reaction: Rash, HIVES Medications loratadine (CLARITIN) 10 mg tabletIndicatio ns:Allergic Rhinitis Take 1 tablet (10 mg total) by mouth every morning Active cholecalciferol , vitamin D3, (VITAMIN D3 ORAL)Indication s:supplement Take 1 tablet by mouth every morning Active CALCIUM CITRATE ORALIndications :supplement Take 600 mg by mouth every morning Take 2 tablets Active acetone, urine, test (acetone, urine, test) strip Use as directed if blood sugar is >300 100 strip 11 07/03/19 21 Active sildenafiL (VIAGRA) 50 mg tablet Take one tablet prior to intercourse 15 tablet 06/08/20 21 Active nebivoloL (BYSTOLIC) 20 mg tablet TAKE ONE (1) TABLET (20 MG TOTAL) BY MOUTH DAILY 90 tablet 3 09/06/19 23 Active pen needle, diabetic 32 gauge x needle Using one daily to inject insulin 100 each 3 12/10/19 23 Active BD Insulin Syringe Ultra-Fine 0.3 mL 30 gauge x 1/2 syringe USE FOR INJECTIONS FIVE (5) TIMES DAILY 450 each 1 11/07/19 24 Active tamsulosin (FLOMAX) 0.4 mg extended release capsule Take 1 capsule (0.4 mg total) by mouth daily 30 capsule 11 03/25/20 24 025 Active glucagon (Baqsimi) 3 mg/actuation spray,non-aeros ol Administer 1 spray into one nostril as needed (hypoglycemia) 1 each 03/26/20 24 Active psyllium husk 6 gram/6 gram powder Take 1-2 tsp daily to help bulk stools. 300 g 2 05/17/20 24 Active tadalafiL (CIALIS) 5 mg tablet TAKE 1 TABLET (5 MG TOTAL) BY MOUTH DAILY 30 tablet 11 05/21/20 24 Active losartan (COZAAR) 100 mg tablet TAKE ONE (1) TABLET (100 MG TOTAL) BY MOUTH DAILY 90 tablet 1 06/23/19 25 Active Rocklatan 0.02-0.005 % drops INSTILL 1 DROP INTO BOTH EYES IN THE EVENING 07/31/19 25 Active amLODIPine (NORVASC) 5 mg tablet Take 1.5 tablets (7.5 mg total) by mouth daily 135 tablet 3 09/05/19 25 026 Active finasteride (PROSCAR) 5 mg tablet TAKE 1 TABLET (5 MG TOTAL) BY MOUTH DAILY 30 tablet 11 11/20/19 25 026 Active rosuvastatin (CRESTOR) 40 mg tablet TAKE ONE TABLET BY MOUTH DAILY 90 tablet 1 11/16/19 25 Active insulin lispro (HumaLOG) 100 unit/mL vial for injection INJECT 29-03-20, MAXIMUM DOSE 70 UNITS DAILY WITH SLIDING SCALE. 60 mL 1 12/28/19 25 Active flash glucose scanning reader (FreeStyle Tasia 2 [place]) miscIndications :Type 1 diabetes mellitus with other specified complication,Lo ng-term insulin use (HCC) USE DIRECTED FOR CHECKING BLOOD GLUCOSE 1 each 01/04/20 25 Active flash glucose sensor (FreeStyle Tasia 2 Sensor) kitIndications: Type 1 diabetes mellitus with other specified complication,Lo ng-term insulin use (HCC) USE DIRECTED FOR CHECKING BLOOD GLUCOSE; CHANGE EVERY 14 DAYS 6 kit 1 01/15/20 25 Active TRUEplus Insulin 0.3 mL 31 gauge x 5/16 syringeIndicati ons:Type 1 diabetes mellitus with other specified complication,Lo ng-term insulin use (HCC) USE FOR INJECTIONS FIVE (5) TIMES DAILY 450 each 01/25/20 25 Active Synthroid 75 mcg tablet TAKE ONE (1) TABLET (75 MCG TOTAL) BY MOUTH DAILY 30 tablet 4 01/28/20 25 Active TRESIBA 100 unit/mL (3 mL) pen for injectionIndica tions:Type 1 diabetes mellitus with other specified complication INJECT 0.2 ML (20 UNITS TOTAL) UNDER THE SKIN DAILY 15 mL 02/12/20 25 025 Active omeprazole (PriLOSEC) 40 mg capsule TAKE 1 CAPSULE (40 MG TOTAL) BY MOUTH TWO (2) (TWO) TIMES a DAY 180 capsule 02/14/20 25 Active Synthroid 75 mcg tablet TAKE ONE (1) TABLET (75 MCG TOTAL) BY MOUTH DAILY 30 tablet 07/11/19 025 Discontinued BD Insulin Syringe Ultra-Fine 0.3 mL 31 gauge x 5/16 syringeIndicati ons:Type 1 diabetes mellitus with other specified complication,Lo ng-term insulin use (HCC) USE FOR INJECTIONS FIVE (5) TIMES DAILY 450 each 08/05/19 25 025 Discontinued TRESIBA 100 unit/mL (3 mL) pen for injection INJECT 0.2 ML (20 UNITS TOTAL) UNDER THE SKIN DAILY 15 mL 11/26/19 25 025 Discontinued omeprazole (PriLOSEC) 40 mg capsule Take 1 capsule (40 mg total) by mouth 2 (two) times a day 180 capsule 11/29/19 25 025 Discontinued Active Problems Patient Care Coordination No te [...] pain 06/16/2023 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 Sx resolved with IVF - Request bMRI today - CTM. He will notify me if sx return. Dupuytren's contracture of right hand 07/16/2019 Overview (07/16/2019): Added automatically from request for surgery [id number] Assessment & Plan (08/11/2019 9:46 PM CONSOLE MANAGER): Plan for operative release with Dr. Loera. - F/u with Dr. Loera for surgery Sensorineural hearing loss (SNHL) of both ears 0 03/08/2019 Assessment & Plan (08/11/2019 9:41 PM CONSOLE MANAGER): Cont f/u with ENT/ audiology Assessment & [...] situ 09/22/2015 Elevated prostate specific antigen (PSA) 07/10/2 015 Assessment & Plan (08/11/2019 9:45 PM CONSOLE MANAGER): F/b Dr. Tinsley. Mildly elevated PSA with abnormal WILLIE. - Pt elected to continue to be screened. Dr. Tinsley advised prostate MRI if PSA were to remain elevated at or above 5. Seborrheic keratosis, inflamed 07/15/2014 Melanoma in situ of trunk 02/11/2014 Assessment & Plan (08/11/2019 9:42 PM CONSOLE MANAGER): Chest, s/p WLE. - Cont f/u with Dr. Canseco - Rec photoprotection, ABCDEs Seborrheic keratoses 11/12/2013 HTN (hypertension), benign 10/26/2013 Overview (09/15/2016): BENIGN HYPERTENSION Assessment & Plan (08/11/2019 9:48 PM CONSOLE MANAGER): Above goal today, home pressures 130-140/60-80. - Given hx of dizziness, will plan to continue losartan 100mg every day for now - He will continue to monitor his blood pressures. Dyslipidemia 10/26/2013 Overview (01/15/2018): Hyperlipidemia LDL goal < 100 Assessment & Plan (08/11/2019 9:42 PM CONSOLE MANAGER): Controlled on current regimen - Cont rosuvastatin 40mg every day Type 1 diabetes mellitus 10/26/2013 Overview (01/15/2018): Diabetes mellitus type 1, controlled Assessment & Plan (08/11/2019 9:41 PM CONSOLE MANAGER): Control is stable. F/b Dr. Armenta. Medication [...] sensation intact Retinopathy screening performed 07/2019, mild DRTommy Pt counseled regarding diet, physical activity, medication adherence Spinal stenosis of lumbar region 04/19/2013 Osteoarthritis of lumbar spine 04/19/2013 Actinic keratosis 09/17/2012 Knee pain 01/31/2011 Ground glass opacity present on imaging of lung Resolved Problems Problem Noted Date Diagnosed Date [...] Encounter for preventive health examination 02/22/2010 08/11/2019 Encounters Date Type Department Care Team Description 5 Results Follow-Up [facility] G[facility] [address] [place] [address] Medical Office Building 4, [address] [place] [phone] Marichuy Austin RN Surgical pathology 5 11:30 AM CDT - 5 12:00 PM CDT Surgery [facility] [address] [address] Cain Leal MD ESOPHAGOGASTRODUODENOSCOPY BIOPSY 5 11:03 AM CDT Anesthesia Event [facility] [address] [address] Roman Restreop MD 5 10:16 AM CDT - 5 12:14 PM CDT Hospital Encounter [facility] [address] [address] Cain Leal MD Gastroesophageal reflux disease, unspecified whether esophagitis present Discharge Disposition: Discharge to home or self care 5 Telephone [facility] Endocrinology Metabolism and Lipid [address] [facility] [place] [place] [address]nd [facility] [address] [place] [address] Elisha Pandey RMA prior auth- Tasia reader 5 Results Follow-Up [facility] Endocrinology Metabolism and Lipid [address] [facility] Floor 1, [address] [place] [phone] Karissa Lopez MD POCT hemoglobin A1c, CBC with auto differential, Comprehensive metabolic panel, Additional followed-up results: 8 5 1:00 PM CDT Office Visit [facility] Endocrinology Metabolism and Lipid [address] [place] [address] Brandi Armenta DO Type 1 diabetes mellitus without complication (HCC) (Primary Dx); Iron deficiency; 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; Vitamin D deficiency; Other hyperlipidemia; Essential hypertension; Hypocalcemia; Pulmonary nodule 5 Telephone [facility] Medicine Gastroenterology [address] [place] [address] Office Building [address], [address] [place] [address] Lupe Foster RN GI new rx sent 5 Telephone [facility]astroenter[facility] [address] [place] [address] Office Building [address], [address] [place] [phone] Lupe Foster RN GI return call 5 11:00 AM CDT Procedure visit [facility] Medicine Dermatology [address] [facility] [address] [place] [phone] Pamela Foy MD PhD Basal cell carcinoma of face (Primary Dx) from Last 3 Months Immunizations Immunization Administration Dates Next Due Influenza, Quad, Adjuvantate d, Intramuscular 03/29/2021 Influenza, Quadrivalent, Hig h Dose, Preservative Free, Intrr 02/21/2020 Influenza, Split 03/01/2010 Influenza, Trivalent, High D ose, Split, Preservative Free, Intramuscular 02/17/2018,02/08/2017,02/01/2017,02/15,02/18/2015 Influenza, Trivalent, Preser vative Free, Intramuscular 06/12/2008 Pfizer SARS-CoV-2 Monovalent Vaccination (12+ Yrs) ALONSO-READY TO USE 12/08/2021 Pfizer SARS-CoV-2 Monovalent Vaccination (12+ Yrs) PURPLE 04/30/2021,08/13/2020,07/23/2020 Surgical History Surgery Date Site/Laterality Comments SKIN CANCER EXCISION 06/12/2013 - 06/11/2014 malignant melanoma CARDIAC CATHETERIZATION 11/03/2021 Left COLONOSCOPY UPPER GASTROINTESTINAL ENDOSCOPY Medical History Medical History Date Comments Personal history of in-situ neoplasm of other site H/O melanoma in situ - (Adde d by ViVu) Erectile dysfunction Diabetes mellitus (HCC) Hypertension Hyperlipidemia Angular cheilitis 05/19/2015 GERD (gastroesophageal reflux disease) Melena Gastric polyp Family History Medical History Relation Name Comments Pancreatic cancer Brother 2 Cancer -pa ncreatic; Cause of : Cancer -pancreatic Cancer Brother 3 Family history of malignant neoplasm - (Added by [employer] Conv) Cancer Father Family history of malignant neoplasm - (Added by [employer] Conv) Lung cancer Father Cancer -lung; C ause of : Cancer -lung Lung disease Father Family history of lung disease - (Added by [employer] Conv) Stroke Mother Stroke; Cause o f : Stroke/Ischemic Stroke - (Added by [employer] Conv) No Known Problems Son Anesthesia problems Neg Hx Relation Name Status Comments Brother 1 (Age 55) Brother 2 Brother 3 Father (Age 79) Mother (Age 89) Son Alive Social History Tobacco Use Types Packs/Day Years Used Date Smoking Tobacco: Former Cigarettes 07 12 1 959 - 1989 Passive Smoke Exposure: Past Smokeless Tobacco: Never Tobacco Cessation:Counseling Given: Not Answered Alcohol Use Standard Drinks/Week Comments Not Currently 0 (1 standard drink = 0.6 oz pur e alcohol) RARE AUDIT-C Answer Date Recorded Q1: How often do you have a drink containing alcohol? Never 01/06/2025 Q2: How many drinks containi ng alcohol do you have on a typical day when you are drinking? Patient does not drink Q3: How often do you have si x or more drinks on one occasion? Never 01/06/2025 PHQ-2 Answer Date Recorded PHQ-2 Score 0 07/30/2019 Personal Safety Answer Date Recorded Have you ever been in or are you currently in a harmful physical or emotional relationship or is someone making you feel afraid or unsafe? Denies 01/06/2025 Sex and Gender Information Value Date Recorded Sex Assigned at Not on file Legal Sex Male 12:14 AM CONSOLE MANAGER Gender Identity Male 06/27/2020 6:23 AM CONSOLE MANAGER Sexual Orientation Not on file Obstetrics History Last Filed Vital Signs Vital Sign Reading Time Taken Comments Blood Pressure 122/85 01/06/2025 11:39 AM CDT Pulse 61 01/06/2025 11:39 AM CDT Temperature 36.2 C (97.2 F) 01/06/2025 11:19 AM CDT Respiratory Rate 17 01/06/2025 11:29 AM CDT Oxygen Saturation 95% 01/06/2025 11:39 AM CDT Inhaled Oxygen Concentration - - Weight 81.6 kg (180 lb) 01/06/2025 10:27 AM CDT Height 170.2 cm (5' 7) 01/06/2025 10:27 AM CDT Body Mass Index 28.19 01/06/2025 10:27 AM CDT Plan of Treatment Scheduled Procedures Name Priority Associated Diagnoses Date/Ti me ESOPHAGOGASTRODUODENOSCOPY Open Access Gastroesophageal reflux disease, unspecified whether esophagitis present Health Maintenance Due Date Last Done Comments Foot Exam 1940 Dilated Eye Exam 1948 DTaP/Tdap/Td Vaccine (1 - Tdap) 1949 Hepatitis B Screening 1956 Pneumococcal vaccine 65+ (1 of 2 - PCV) 1957 Zoster Vaccine (1 of 2) 1988 Well Visit 65+ 10/12/2003 Depression Screening 07/30/2020 07/30/2019 Covid-19 Vaccine (5 - 2024-2 6 season) 2025 12/08/2021, 04/30/2021, 08/13/2020, Additional history exists Influenza Vaccine (#1) 2025 , 02/21/2020, 02/17/2018, Additional history exists Albumin Creatinine Ratio, Urine 03/27/2025 03/27/2024, 08/17/2023, 09/13/2022, Additional history exists Hemoglobin A1C 06/03/2025 12/02/2024, 03/0 10/2024, 03/26/2024, Additional history exists Lipid Panel 12/11/2025 12/11/2024, 03/12, 08/17/2023, Additional history exists TSH Level 12/11/2025 12/11/2024, 03/12, 08/17/2023, Additional history exists eGFR 12/11/2025 12/11/2024, 030 12/2024, 03/27/2024, Additional history exists Fall Risk Assessment 01/06/2026 01/06/2025 Procedures Procedure Name Priority Date/Time Associated Diagnosis Comments SURGICAL PATHOLOGY Routine 01/06/2025 11:13 AM CDT Gastroesophageal reflux disease, unspecified whether esophagitis present ESOPHAGOGASTRODUODENOSCOPY BIOPSY 01/06/2025 11:03 AM CDT Gastroesophageal reflux disease, unspecified whether esophagitis present EGD 01/06/2025 10:56 AM CDT POCT GLUCOSE DEVICE Routine 01/06/2025 10:37 AM CDT IGA Routine 12/11/2024 1:06 PM CDT Iron deficiency ENDOMYSIAL ANTIBODY, IGA TITER Routine 0 12/11/2024 1:04 PM CDT Iron deficiency TISSUE TRANSGLUTAMINASE, IGA Routine 07/2024 1:04 PM CDT Iron deficiency FERRITIN Routine 12/11/2024 1:04 PM CDT Iron deficiency IRON PROFILE W/ IBC Routine 12/11/2024 1:04 PM CDT Iron deficiency T4, FREE Routine 12/11/2024 1:04 PM CDT 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 TSH Routine 12/11/2024 1:04 PM CDT 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 LIPID PANEL Routine 12/11/2024 1:04 PM CDT Type 1 diabetes mellitus without complication (HCC) COMPREHENSIVE METABOLIC PANEL Routine 1:04 PM CDT Type 1 diabetes mellitus without complication (HCC) CBC WITH AUTO DIFFERENTIAL Routine 12/11 1:04 PM CDT Iron deficiency POCT HEMOGLOBIN A1C Routine 12/02/2024 1:03 PM CDT Type 1 diabetes mellitus without complication (HCC) ALBUMIN CREATININE RATIO, URINE Routine 03/27/2024 10:54 AM CDT Type 1 diabetes mellitus with other specified complication (HCC) from Last 3 Months or Most Recently Relevant to Health Maintenance Results * Surgical pathology (01/06/2025 11:13 AM CDT) Tissue (Gastric/Stomach biopsy) 01/06/2025 11:13 AM CDT Tissue specimen (specimen) (Gastric/Stomach biopsy) 01/06/2025 11:13 AM CDT Tissue specimen (specimen) (Gastric/Stomach biopsy) 01/06/2025 11:14 AM CDT Narrative PATHOLOGY [facility] - 01/07/2025 2:08 PM CDT EPIC results best viewed via link to PDF [facility] [place] [address] Note to Patients: This report may contain a detailed description of human tissue sent by a health care provider to the laboratory for pathologic evaluation. The content of this report is essential for diagnosis and may provide important critical findings. This information may be unfamiliar to patients to review without a medical professional present. It is advised that the patient review this report in the presence of a health care provider who can answer questions and explain the details. SURGICAL PATHOLOGY REPORT FINAL Patient Name: DARIEL HOANG Gender: M : 1940 (Age: 84) Address: [address] [place] [phone] [facility] #: [id number] Taken:01/06/2025 Received:01/06/2025 Reported: 01/07/2025 Patient Type: [facility] Service: Gastro Location: Physician(s): Obdulia Ko M.D. Richa Bhardwaj, M.D. Diagnosis: A. Stomach, antrum, polyps, biopsy - Hyperplastic polyp(s) B. Stomach, scar, biopsy - Antral mucosa with reactive changes - No evidence of dysplasia or malignancy - No H. pylori organisms are identified by H&E examination C. Stomach, random, biopsy - Oxyntic mucosa with parietal cell hyperplasia, as seen in hypergastrinemic states (e.g. proton pump inhibitor therapy) - No H. pylori organisms are identified by H&E examination ud/01/07/2025 11:12 By this signature, I attest that the above diagnosis is based upon my personal examination of the slides(and/or other material indicated in the diagnosis). Grace Hodge M.D., Ph.D. Report Electronically Reviewed and Signed Out By Grace Hodge M.D., Ph.D. 01/07/2025 14:08:07 Microscopic Description and Comment: Microscopic examination substantiates the above cited diagnosis. Kelly Molina M.D. 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 Operative procedure: Esophagogastroduodenoscopy and biopsy. Specimen(s) Received: A: Antrum polyps B: Scar C: random gas Gross Description: Received in three formalin jars labeled with the patient's identifiers. A. Designated antrum polyps are multiple tissue fragments (less than 0.1-0.4 cm) filtered in A1. Jar 0. B. Designated scar are two, possibly three tissue fragments (0.2-0.4 cm) filtered in B1. Jar 0. C. Designated random gas are five tissue fragments (0.1-0.4 cm) filtered in C1. Jar 0. sxv/01/06/2025 14:48 PA(s): Dung Murphy, MS, PA ([facility])CM By this signature, I attest that the above diagnosis is based upon my personal examination of the slides(and/or other material). Addenda/Procedures The performance characteristics of some immunohistochemical stains, fluorescence in-situ hybridization tests and immunophenotyping by flow cytometry cited in this report (if any) were determined by the Surgical Pathology and Flow Cytometry Departments at [facility] as part of an ongoing quality systems engineer program and in compliance with federally mandated regulations drawn from the Clinical Laboratory Improvement Act of 1988 (CLIA '88). Some of these tests rely on the use of analyte specific reagents and are subject to specific labeling requirements by the US Food and Drug Administration. Such diagnostic tests may only be performed in a facility that is certified by the Department of Health and Human Services as a high complexity laboratory under CLIA '88. The FDA has determined that such clearance or approval is not necessary. This test is used for clinical purposes. It should not be regarded as investigational or for research. Nevertheless, federal rules concerning the medical use of analyte specific reagents require that the following disclaimer be attached to the report: This test was developed and its performance characteristics determined by the Surgical Pathology and Flow Cytometry Departments of [facility]. It has not been cleared or approved by the U. S. Food and Drug Administration. IMAGES AND SCANNED DOCUMENTS, IF INCLUDED, ONLY VIEWABLE IN PDF VERSION OF REPORT Cain Leal MD LAB PATHOLOGY [facility] Final Result PATHOLOGY [facility] 3rd Floor [place], [place] [phone] * EGD (01/06/2025 10:56 AM CDT) Anatomical Region Laterality Modality Other Narrative Procedure Note Cain Leal MD - 01/06/2025 10:56 AM CDT GI ENDOSCOPY [facility] Patient Name: Dariel Hoang Procedure Date: 01/06/2025 10:56 AM Date of : 1940 Admit Type: Outpatient Age: 84 Gender: Male Attending MD: Cain Leal M.D., [facility] Note Status: Finalized Procedure: Upper GI endoscopy Indications: Follow-up of after ESD of gastric adenoma. Referring MD: Fior Walker M.D., Elizabet De León M.D. Providers: Cain Leal M.D. Medicines: Monitored Anesthesia Care Complications: No immediate complications. Estimated Blood Loss: Estimated blood loss: none. Procedure: Pre-Anesthesia Assessment: - Immediately prior to administration ofmedications, the patient was re-assessed for adequacy to receive sedatives. The benefits, risks, and alternatives to theprocedure and sedation were discussed and informed consentwas obtained. The scope was passed under direct vision. The GIF [id number] endoscope was introducedthrough the mouth, and advanced to the second part of duodenum. The upper GI endoscopy was accomplished without difficulty. The patient tolerated the procedure well. Findings: The esophagus was normal. A medium-sized hiatal hernia was present. A few 5 to 9 mm semi-sessile polyps with no stigmata of recentbleeding were found in the prepyloric region of the stomach. Biopsies weretaken with a cold forceps for histology. A medium post mucosectomy scar was found in the gastric antrum. Thescar tissue was healthy in appearance. There was no evidence of theprevious polyp. Biopsies were taken with a cold forceps for histology. The exam of the stomach was otherwise normal. Random biopsies weretaken with a cold forceps for histology. The examined duodenum was normal. Impression: - Normal esophagus. - Medium-sized hiatal hernia. - A few gastric polyps, inflammatory appearing, not present on exam earlier this year. Biopsied. - Scar in the gastric antrum. Biopsied. - Normal examined duodenum. Recommendation: - Call my nurses in the GI office at [phone] ([phone]) for your final pathology results in7 days. - Use a proton pump inhibitor PO BID. - Repeat upper endoscopy in 6 months forsurveillance, if no dysplasia on histology. - Return to primary care physician as previously scheduled. Attending Participation: I personally performed the entire procedure. Electronically signed by Cain Leal MD Cain Leal M.D. 01/06/2025 11:21:52 AM . Number of Addenda: 0 Note Initiated On: 01/06/2025 10:56 AM Cain Leal MD ENDOSCOPY PROCEDUR ES Final Result * POCT glucose (01/06/2025 10:37 AM CDT) Glucose, POC 164 70 - 199 mg/dL Blood 01/06/2025 10:3 7 AM CDT 01/06/2025 10:37 AM CDT us Cain Leal MD LAB POCT ORDERABLE S - DEVICE Final Result [facility] Department [place] [address] * IgA (12/11/2024 1:06 PM CDT) Pathologist [facility] Immunoglobulin A 204 70 - 320 mg/dL [facility] Blood 12/11/2024 1:06 PM CDT 12/11/2024 1:06 PM CDT Narrative [facility] - 12/12/2024 7:33 AM CDT FASTING:NO FASTING: NO [facility] DO LAB BLOOD ORDERABLES Fi nal Result Performing Organization Address [facility] Co de Phone Number [facility] [address] [place] [address] * Iron profile w/ IBC (12/11/2024 1:04 PM CDT) [facility] Iron 102 50 - 180 mcg/dL [facility] TIBC 275 250 - 425 mcg/dL (calc) [facility] Iron saturation 37 20 - 48 % (calc) [facility] Blood 12/11/2024 1:04 PM CDT 12/11/2024 1:04 PM CDT Narrative [facility] - 12/14/2024 7:57 AM CDT FASTING:NO FASTING: NO [facility] DO LAB BLOOD ORDERABLES Fi nal Result Performing Organization Address [facility] [facility] de Phone Number QUEST [facility] [address] [place] [address] * CBC with auto differential (12/11/2024 1:04 PM CDT) [facility] WBC 6.0 3.8 - 10.8 Thousand/u L [facility] RBC, POC 4.27 4.20 - 5.80 Million/uL [facility] Hgb 13.3 13.2 - 17.1 g/dL [facility] Hct 41.6 38.5 - 50.0 % [facility] MCV 97.4 80.0 - 100.0 fL [facility] MCH 31.1 27.0 - 33.0 pg [facility] MCHC 32.0 32.0 - 36.0 g/dL [facility] Comment: For adults, a slight decrease in the calculated MCHC value (in the range of 30 to 32 g/dL) is most likely not clinically significant; however, it should be interpreted with caution in correlation with other red cell parameters and the patient's clinical condition. Rdw 12.2 11.0 - 15.0 % [facility] Platelets 167 140 - 400 Thousand/u L [facility] MPV 10.2 7.5 - 12.5 fL [facility] Neutrophils, abs 4,350 1,500 - 7,800 cells/uL [facility] Lymphocytes, abs 1,038 850 - 3,900 cells/uL [facility] Monocyte abs 402 200 - 950 cells/uL [facility] Eosinophils, abs 180 15 - 500 cells/uL [facility] Basophils, abs 30 0 - 200 cells/uL [facility] Neutrophils 72.5 % [facility] Lymphocyte pct 17.3 % [facility] Monocytes 6.7 % [facility] Eosinophils 3.0 % [facility] Basophils 0.5 % [facility] Blood 12/11/2024 1:04 PM CDT 12/11/2024 1:04 PM CDT Narrative [facility] - 12/14/2024 7:57 AM CDT FASTING:NO FASTING: NO us Brandi Armenta DO LAB BLOOD ORDERABLES Fi nal Result [facility] [address] [address] * Endomysial antibody, IgA titer (12/11/2024 1:04 PM CDT) Endomysial ab screen IgA w/reflex to titer NEGATIVE NEGATIVE [facility] Blood 12/11/2024 1:04 PM CDT 12/11/2024 1:04 PM CDT Narrative [facility] - 12/14/2024 7:57 AM CDT FASTING:NO FASTING: NO Brandi Sargent Kathi DO LAB BLOOD ORDERABLES Fi nal Result Performing Organization Address [facility] de Phone Number QUEST [facility] [address] [place] [address] * Tissue transglutaminase IgA (TGG-IgA Ab) (12/11/2024 1:04 PM CDT) Pathologist [facility] Tissue transglutaminase ab, IgA <1.0 U/mL [facility] Comment: Value Interpretation ----- <15.0 Antibody not detected > or = 15.0 Antibody detected Blood 12/11/2024 1:04 PM CDT 12/11/2024 1:04 PM CDT Narrative [facility] - 12/14/2024 7:57 AM CDT FASTING:NO FASTING: NO Brandi Rosetta Kathi DO LAB BLOOD ORDERABLES Fi nal Result Performing Organization Address [facility] Phone Number [facility] [address] [place] [address] * TSH (12/11/2024 1:04 PM CDT) Pathologist [facility] TSH 1.98 0.40 - 4.50 mIU/L [facility] Blood 12/11/2024 1:0 4 PM CDT 12/11/2024 1:04 PM CDT Narrative [facility] - 12/14/2024 7:57 AM CDT FASTING:NO FASTING: NO Brandi Poolharme DO LAB BLOOD ORDERABLES Fi nal Result Performing Organization Address [facility] Co de Phone Number [facility] [address] [facility] [place] [address] * T4, free (12/11/2024 1:04 PM CDT) Pathologist [facility] Free T4 1.2 0.8 - 1.8 ng/dL [facility] Blood 12/11/2024 1:04 PM CDT 12/11/2024 1:04 PM CDT Narrative [facility] - 12/14/2024 7:57 AM CDT FASTING:NO FASTING: NO Brandi Armenta LAB BLOOD ORDERABLES Fi nal Result Performing Organization Address [facility] Co de Phone Number [facility] [address] [place] [address] * Ferritin (12/11/2024 1:04 PM CDT) [facility] Ferritin 47 24 - 380 ng/mL [facility] Blood 12/11/2024 1:04 PM CDT 12/11/2024 1:04 PM CDT Narrative [facility] - 12/14/2024 7:57 AM CDT FASTING:NO FASTING: NO Brandi Armenta LAB BLOOD ORDERABLES Fi nal Result Performing Organization Address [facility] de Phone Number [facility] [address] [place] [address] * Lipid panel (12/11/2024 1:04 PM CDT) [facility] Cholesterol 112 <200 mg/dL [facility] HDL 42 > OR = 40 mg/dL [facility] Triglycerides 116 <150 mg/dL [facility] LDL 50 mg/dL (calc) [facility] Comment: Reference range: <100 Desirable range <100 mg/dL for primary prevention; <70 mg/dL for patients with CHD or diabetic patients with > or = 2 CHD risk factors. LDL-C is now calculated using the [place]esto calculation, which is a validated novel method providing better accuracy than the Friedewald equation in the estimation of LDL-C. Dannie HENDRICKS et al. SUSHIL. 2013;310(19): 3353-5116 (http://education.[employer]/faq/RDJ392) Chol/HDL ratio 2.7 <5.0 (calc) [facility] Non-HDL, (LDL+VLDL) 70 <130 mg/dL (calc) [facility] Comment: For patients with diabetes plus 1 major ASCVD risk factor, treating to a non-HDL-C goal of <100 mg/dL (LDL-C of <70 mg/dL) is considered a therapeutic option. Blood 12/11/2024 1:04 PM CDT 12/11/2024 1:04 PM CDT Narrative [facility] - 12/14/2024 7:57 AM CDT FASTING:NO FASTING: NO us Brandi Armenta DO LAB BLOOD ORDERABLES Fi nal Result [facility] [address] [place] [address] * (ABNORMAL) Comprehensive metabolic panel (12/11/2024 1:04 PM CDT) Pathologist [facility] Glucose 216(H) 65 - 139 mg/dL [facility] Comment: Non-fasting reference interval BUN 18 7 - 25 mg/dL [facility] Creatinine 1.00 0.70 - 1.22 mg/dL [facility] eGFR 73 > OR = 60 mL/min/1.7 3m2 [facility] BUN/creat ratio SEE NOTE: 6 - 22 (calc) [facility] Comment: Not Reported: BUN and Creatinine are within reference range. Sodium 139 135 - 146 mmol/L [facility] Potassium, pl 4.1 3.5 - 5.3 mmol/L [facility] Chloride 103 98 - 110 mmol/L [facility] CO2 25 20 - 32 mmol/L [facility] Calcium 8.7 8.6 - 10.3 mg/dL [facility] Protein, sr 6.0(L) 6.1 - 8.1 g/dL [facility] Albumin 3.8 3.6 - 5.1 g/dL [facility] GLOBULIN 2.2 1.9 - 3.7 g/dL (calc) [facility] Alb/glob ratio 1.7 1.0 - 2.5 (calc) [facility] Bilirubin, total 0.5 0.2 - 1.2 mg/dL [facility] Alk phos 85 35 - 144 U/L [facility] AST 19 10 - 35 U/L [facility] ALT (SGPT) 15 9 - 46 U/L [facility] Blood 12/11/2024 1:04 PM CDT 12/11/2024 1:04 PM CDT Narrative [facility] - 12/14/2024 7:57 AM CDT FASTING:NO FASTING: NO Brandi Armenta DO LAB BLOOD ORDERABLES Fi nal Result [facility] [address] [place] [address] * (ABNORMAL) POCT hemoglobin A1c (12/02/2024 1:03 PM CDT) Pathologist [facility] Hemoglobin A1C, POC 7.5(A) 4.0 - 5.6 % Blood 12/02/2024 1:03 PM CDT Brandi Armenta DO POINT OF CARE TEST ORDE RABLES Final Result * Albumin Creatinine Ratio, Urine (03/27/2024 10:54 AM CDT) Creatinine, ur 152 20 - 320 mg/dL [facility] Microalbumin, ur 0.9 See Note: mg/dL [facility] Comment: Reference Range: Reference Range Not established Microalbumin/creat ratio 6 <30 mg/g creat [facility] Comment: The ADA defines abnormalities in albumin excretion as follows: Albuminuria Category Result (mg/g creatinine) Normal to Mildly increased <30 Moderately increased 30-299 Severely increased > OR = 300 The ADA recommends that at least two of three specimens collected within a 3-6 month period be abnormal before considering a patient to be within a diagnostic category. Urine 03/27/2024 10:5 4 AM CDT 03/27/2024 10:55 AM CDT Narrative [facility] - 03/28/2024 11:35 AM CDT FASTING:NO FASTING: NO Brnadi Armenta DO LAB URINE ORDERABLES Fi nal Result [facility] [address] [place] [address] from Last 3 Months or Most Recently Relevant to Health Maintenance Insurance MEDICARE [facility] MEDICARE [place] MEDICARE [facility] ACCESS MEDICARE [facility] Advance Directives For more information, please contact: [phone] * Full Code (Latest Code Status on File) Date Activated Date Inactivated Comments 01/06/2025 10:22 AM 01/06/2025 4:19 PM * Full Code Date Activated Date Inactivated Comments 06/19/2024 10:45 AM 06/19/2024 5:34 PM * Full Code Date Activated Date Inactivated Comments 11/03/2021 4:13 PM 11/03/2021 11:32 PM Care Teams Station Inspector Relationship Specialty Start Date End Date Elizabet De León MD [address] [place] [address] PCP - General Internal Medicine 07/08/19 Brandi Armenta DO [address] [facility] [address] [place] [address] Consulting Physician Endocrinology Diabetes & Metabolism 03/19/19 Shanel Lowery PA [address] [place] [phone] [place] [address] Physician Manager Lean Colon and Rectal Surgery 05/16/24
[2025-02-17 06:39] VITALS: BP 167/113; PULSE 97; RESP 20; TEMP 37.1; O2SAT 95
[2025-02-17 06:46] VITALS: BP 181/55; PULSE 85; RESP 18; TEMP 37.1; O2SAT 96
--- OUTSIDE RECORDS SUMMARY | 2025-02-17 07:09 | XMS_ITS | Clinical Summary ---
Author Organization [facility] Address [address] [place] [address] Care Team Providers Care Rate Clerk Name Role Phone Elizabet De León MD Primary Care Provider Brandi Armenta DO Unavailable [phone] Shanel Lowery Unavailable [phone] Allergies Active Allergy Reactions Criticality Noted Date [...] flash glucose scanning reader (FreeStyle Tasia 2 [place]) miscIndications :Type 1 diabetes mellitus with other [...] pain 06/16/2023 Coronary artery disease invo lving [place] coronary artery of [place] heart with angina pectoris 06/16/2023 Trigger ring finger of right hand 02/07/2023 Abnormal cardiovascular stress test 10/13/2021 Overview (10/13/2021): Added automatically from request for surgery [id number] Dizziness 08/11/2019 Assessment & Plan (08/11/2019 9:50 PM ENTERPRISE APPLICATION DEVELOPER): More c/w lightheadedness, briefly admitted in June at [facility]. Sx resolved with IVF - Request bMRI today - CTM. He will notify me if sx return. Dupuytren's contracture of right hand 07/16/2019 Overview (07/16/2019): Added automatically from request for surgery [id number] Assessment & Plan (08/11/2019 9:46 PM ENTERPRISE APPLICATION DEVELOPER): Plan for operative release with Dr. Loera. - F/u with Dr. Loear for surgery Sensorineural hearing loss (SNHL) of both ears 0 03/08/2019 Assessment & Plan (08/11/2019 9:41 PM ENTERPRISE APPLICATION DEVELOPER): Cont f/u with ENT/ audiology Assessment & [...] 015 Assessment & Plan (08/11/2019 9:45 PM ENTERPRISE APPLICATION DEVELOPER): F/b Dr. Tinsley. Mildly elevated PSA with abnormal WILLIE. - Pt elected to continue to be screened. Dr. Tinsley advised prostate MRI if PSA were to remain elevated at or above 5. Seborrheic keratosis, inflamed 07/15/2014 Melanoma in situ of trunk 02/11/2014 Assessment & Plan (08/11/2019 9:42 PM ENTERPRISE APPLICATION DEVELOPER): Chest, s/p WLE. - Cont f/u with Dr. Canseco - Rec photoprotection, ABCDEs Seborrheic keratoses 11/12/2013 HTN (hypertension), benign 10/26/2013 Overview (09/15/2016): BENIGN HYPERTENSION Assessment & Plan (08/11/2019 9:48 PM ENTERPRISE APPLICATION DEVELOPER): Above goal today, home pressures 130-140/60-80. - Given hx of dizziness, will plan to continue losartan 100mg every day for now - He will continue to monitor his blood pressures. Dyslipidemia 10/26/2013 Overview (01/15/2018): Hyperlipidemia LDL goal < 100 Assessment & Plan (08/11/2019 9:42 PM ENTERPRISE APPLICATION DEVELOPER): Controlled on current regimen - Cont rosuvastatin 40mg every day Type 1 diabetes mellitus 10/26/2013 Overview (01/15/2018): Diabetes mellitus type 1, controlled Assessment & Plan (08/11/2019 9:41 PM ENTERPRISE APPLICATION DEVELOPER): Control is stable. F/b Dr. Armenta. Medication [...] Department Care Team Description 5 Results Follow-Up [facility] [place], [place] Gastroenterology [address] [place] [address] Medical Office Building 4, [address] [place] [phone] Marichuy Austin RN Surgical pathology 5 11:30 AM CDT - 5 12:00 PM CDT Surgery [facility] [address] [address] Cain Leal MD ESOPHAGOGASTRODUODENOSCOPY BIOPSY 5 11:03 AM CDT Anesthesia Event [facility] [address] [address] Roman Restrepo MD 5 10:16 AM CDT - 5 12:14 PM CDT Hospital Encounter [facility] [address] [address] Cain Leal MD Gastroesophageal reflux disease, unspecified whether esophagitis present Discharge Disposition: Discharge to home or self care 5 Telephone [facility] [place], [place] Endocrinology Metabolism and Lipid [address] [facility] [address] [facility] [address] [place] [address] Elisha Pandey RMA prior auth- Tasia reader 5 Results Follow-Up [facility] [place], [place] Endocrinology Metabolism and Lipid [address] [facility] Floor 1, [address] [place] [phone] Karissa Lopez MD POCT hemoglobin A1c, CBC with auto differential, Comprehensive metabolic panel, Additional followed-up results: 8 5 1:00 PM CDT Office Visit [facility] [place], [place] Endocrinology Metabolism and Lipid [address] [place] [address] Brandi Armenta DO Type 1 diabetes mellitus without complication (HCC) (Primary Dx); Iron deficiency; 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; Vitamin D deficiency; Other hyperlipidemia; Essential hypertension; Hypocalcemia; Pulmonary nodule 5 Telephone [facility] Medicine Gastroenterology [address] [place] [address] Office Building 4, [address] [place] [address] Lupe Foster RN GI new rx sent 5 Telephone [facility] [place] [place] Gastroenterology [address] [place] [address] Office Building 4, [address] [place] [phone] Lupe Foster RN GI return call 5 11:00 AM CDT Procedure visit [facility] Medicine Dermatology [address] [facility] [address] [place] [phone] Pamela Foy MD PhD Basal cell carcinoma [...] melanoma in situ - (Adde d by [place]) Erectile dysfunction Diabetes mellitus (HCC) Hypertension Hyperlipidemia Angular cheilitis 05/19/2015 GERD (gastroesophageal reflux disease) Melena Gastric polyp Family History Medical History Relation Name Comments Pancreatic cancer Brother 2 Cancer -pa ncreatic; Cause of : Cancer -pancreatic Cancer Brother 3 Family history of malignant neoplasm - (Added by mojio Conv) Cancer Father Family history of malignant neoplasm - (Added by mojio Conv) Lung cancer Father Cancer -lung; C ause of : Cancer -lung Lung disease Father Family history of lung disease - (Added by mojio Conv) Stroke Mother Stroke; Cause o f : Stroke/Ischemic Stroke - (Added by mojio Conv) No Known Problems Son Anesthesia problems [...] on file Legal Sex Male 12:14 AM ENTERPRISE APPLICATION DEVELOPER Gender Identity Male 06/27/2020 6:23 AM ENTERPRISE APPLICATION DEVELOPER Sexual Orientation Not on file Obstetrics History [...] biopsy) 01/06/2025 11:14 AM CDT Narrative PATH[facility]Y [facility] - 01/07/2025 2:08 PM CDT EPIC results best viewed via link to PDF [facility] [place] [address] Note to Patients: This report may contain [...] Gender: M : 1940 (Age: 84) Address: [address] [place] [phone] [facility] #: [id number] Taken:01/06/2025 Received:01/06/2025 Reported: 01/07/2025 Patient Type: [facility] Service: Gastro Location: Physician(s): Obdulia Ko M.D. [...] sxv/01/06/2025 14:48 PA(s): Dung Murphy, MS, PA ([facility])CM By this signature, I attest that the above diagnosis is based upon my personal examination of the slides(and/or other material). Addenda/Procedures The performance characteristics of some immunohistochemical stains, fluorescence in-situ hybridization tests and immunophenotyping by flow cytometry cited in this report (if any) were determined by the Surgical Pathology and Flow Cytometry Departments at [facility] as part of an ongoing quality associate program and in compliance with federally mandated [...] Surgical Pathology and Flow Cytometry Departments of [facility]. It has not been cleared or approved by the U. S. Food and Drug Administration. IMAGES AND SCANNED DOCUMENTS, IF INCLUDED, ONLY VIEWABLE IN PDF VERSION OF REPORT Cain Leal MD LAB PATHOLOGY [facility] Final Result PATHOLOGY [facility] 3rd Floor [place], [place] [phone] * EGD (01/06/2025 10:56 AM CDT) Anatomical Region Laterality Modality Other Narrative Procedure Note Cain Leal MD - 01/06/2025 10:56 AM CDT GI ENDOSCOPY [facility] Patient Name: Dariel Hoang Procedure Date: 01/06/2025 10:56 AM Date of : 1940 Admit Type: Outpatient Age: 84 Gender: Male Attending MD: Cain Leal M.D., Room: [facility] ENDOSCOPY ROOM 1 Note Status: Finalized [...] passed under direct vision. The GIF H190 [id number] endoscope was introducedthrough the mouth, and advanced [...] my nurses in the GI office at [phone] ([phone]) for your final pathology results in7 days. [...] ORDERABLE S - DEVICE Final Result [facility] [place] [address] * IgA (12/11/2024 1:06 PM CDT) Pathologist [facility] Immunoglobulin A 204 70 - 320 mg/dL [facility] Blood 12/11/2024 1:06 PM CDT 12/11/2024 1:06 PM CDT Narrative [facility] - 12/12/2024 7:33 AM CDT FASTING:NO FASTING: NO [facility] Kathi DO LAB BLOOD ORDERABLES Fi nal Result Performing Organization Address [facility] Co de Phone Number [facility] [address] [place] [address] * Iron profile w/ IBC (12/11/2024 1:04 PM CDT) [facility] Iron 102 50 - 180 mcg/dL [facility] TIBC 275 250 - 425 mcg/dL (calc) [facility] Iron saturation 37 20 - 48 % (calc) [facility] Blood 12/11/2024 1:04 PM CDT 12/11/2024 1:04 PM CDT Narrative [facility] - 12/14/2024 7:57 AM CDT FASTING:NO FASTING: NO [facility] Kathi DO LAB BLOOD ORDERABLES Fi nal Result Performing Organization Address [facility] de Phone Number [facility] [address] [place] [address] * CBC with auto differential (12/11/2024 1:04 PM CDT) [facility] WBC 6.0 3.8 - 10.8 Thousand/u L [...] ORDERABLES Fi nal Result [facility] [address] [place] [address] * Endomysial antibody, IgA titer (12/11/2024 1:04 PM CDT) Endomysial ab screen IgA w/reflex to titer NEGATIVE NEGATIVE [facility] Blood 12/11/2024 1:04 PM CDT 12/11/2024 1:04 PM CDT Narrative [facility] - 12/14/2024 7:57 AM CDT FASTING:NO FASTING: NO Brandi Armenta DO LAB BLOOD ORDERABLES Fi nal Result Performing Organization Address [facility] de Phone Number [facility] [address] [place] [address] * Tissue transglutaminase IgA (TGG-IgA Ab) (12/11/2024 1:04 PM CDT) Pathologist [facility] Tissue transglutaminase ab, IgA <1.0 U/mL [facility] Norm Comment: Value Interpretation ----- <15.0 Antibody not detected > or = 15.0 Antibody detected Blood 12/11/2024 1:04 PM CDT 12/11/2024 1:04 PM CDT Narrative [facility] - 12/14/2024 7:57 AM CDT FASTING:NO FASTING: NO Brandi Armenta DO LAB BLOOD ORDERABLES Fi nal Result Performing Organization Address [facility] Phone Number [facility] [address] [place] [address] * TSH (12/11/2024 1:04 PM CDT) Pathologist [facility] TSH 1.98 0.40 - 4.50 mIU/L [facility] Blood 12/11/2024 1:04 PM CDT 12/11/2024 1:04 PM CDT Narrative [facility] - 12/14/2024 7:57 AM CDT FASTING:NO FASTING: NO Brandi Armenta DO LAB BLOOD ORDERABLES Fi nal Result Performing Organization Address [facility] Co de Phone Number [facility] [address] [facility] [place] [address] * T4, free (12/11/2024 1:04 PM CDT) Pathologist [facility] Free T4 1.2 0.8 - 1.8 ng/dL [facility] Blood 12/11/2024 1:04 PM CDT 12/11/2024 1:04 PM CDT Narrative [facility] - 12/14/2024 7:57 AM CDT FASTING:NO FASTING: NO Brandi Armenta DO LAB BLOOD ORDERABLES Fi nal Result Performing Organization Address [facility] de Phone Number [facility] [address] [place] [address] * Ferritin (12/11/2024 1:04 PM CDT) [facility] Ferritin 47 24 - 380 ng/mL [facility] Blood 12/11/2024 1:04 PM CDT 12/11/2024 1:04 PM CDT Narrative [facility] - 12/14/2024 7:57 AM CDT FASTING:NO FASTING: NO Brandi Armenta DO LAB BLOOD ORDERABLES Fi nal Result Performing Organization Address [facility] de Phone Number [facility] [address] [place] [address] * Lipid panel (12/11/2024 1:04 PM CDT) [facility] Cholesterol 112 <200 mg/dL [facility] [...] LDL-C. Dannie HENDRICKS et al. SUSHIL. 2013;310(19): 8126-9286 (http://education.Uplogix/faq/BCC735) Chol/HDL ratio 2.7 <5.0 (calc) [facility] [...] BLOOD ORDERABLES Fi nal Result [facility] [address] [place] [address] * (ABNORMAL) Comprehensive metabolic panel (12/11/2024 1:04 PM CDT) Pathologist [facility] Glucose 216(H) 65 - 139 mg/dL [facility] [...] BLOOD ORDERABLES Fi nal Result [facility] [address] [place] [address] * (ABNORMAL) POCT hemoglobin A1c (12/02/2024 1:03 PM CDT) Pathologist [facility] Hemoglobin A1C, POC 7.5(A) 4.0 - 5.6 [...] 03/28/2024 11:35 AM CDT FASTING:NO FASTING: NO Brandi Armenta DO LAB URINE ORDERABLES Fi nal Result [facility] [address] [facility] [place] [address] from Last 3 Months or Most Recently Relevant to Health Maintenance Insurance MEDICARE [facility] MEDICARE [place] [employer] [place] MEDICARE [facility] ACCESS MEDICARE [facility] Advance Directives For more information, please contact: [phone] * Full Code (Latest Code Status on File) Date Activated Date Inactivated Comments 01/06/2025 10:22 AM 01/06/2025 4:19 PM * Full Code Date Activated Date Inactivated Comments 06/19/2024 10:45 AM 06/19/2024 5:34 PM * Full Code Date Activated Date Inactivated Comments 11/03/2021 4:13 PM 11/03/2021 11:32 PM Care Teams Rate Clerk Relationship Specialty Start Date End Date Elizabet De León MD [address] [place] [address] PCP - General Internal Medicine 07/08/19 Brandi Armenta DO [address] [facility] [address] [place] [address] Consulting Physician Endocrinology Diabetes & Metabolism 03/19/19 Shanel Lowery PA [address] [place] [phone] [place] [address] Physician Order Taker Colon and Rectal Surgery 05/16/24
--- OUTSIDE RECORDS SUMMARY | 2025-02-17 07:09 | XMS_ITS | Encounter Summary ---
Author Organization [facility] Address [address] [place] [address] Care Team Providers Care Mdm Developer Name Role Phone Brandi Armenta DO Primary Care Provider No, Physician Primary Care Provider [phone] Elizabet De León MD Primary Care Provider Brandi Armenta DO Unavailable [phone] Shanel Lowery Unavailable [phone] Encounter Details Date Type Department Care Team (Late st Contact Info) Description 12/07/2017 Community Orders [facility] EpicCare Link Brandi Armenta DO [address] [place] [address] Pneumonia of both lower lobes due to infectious organism (CMS/HCC) (Primary Dx); Lung nodule Social History Tobacco Use Types Packs/Day Years Used Date Smoking Tobacco: Former Alcohol Use Standard Drinks/Week Comments No 0 (1 standard drink = 0.6 oz pur e alcohol) Sex and Gender Information Value Date Recorded Sex Assigned at Not on file Legal Sex Male 12:[address] Gender Identity Male 06/27/2020 6:[address] Sexual Orientation Not on file documented as [...] COVID: Suspected 05/06/2022 05/06/2022 05/06/2022 10:[address] M[address]ER documented as of this encounter Care Teams Mdm Developer Relationship Specialty Start Date End Date Brandi Armenta DO PCP - General 11/03/16 07/03/19 No, Physician PCP - General 07/04/19 07/07/19 Elizabet De León MD [address] [place] [address] PCP - General Internal Medicine 07/08/19 Brandi Armenta DO [address] [facility] [address] [place] [address] Consulting Physician Endocrinology Diabetes & Metabolism 03/19/19 Shanel Lowery PA [address] [place] [phone] [place] [address] Physician Trauma Nurse Colon and Rectal Surgery 05/16/24 documented as of this encounter
--- OUTSIDE RECORDS SUMMARY | 2025-02-17 07:09 | XMS_ITS ---
Author Organization [facility] Address [address] [place] [address] Care Team Providers Care Steel Die Printer Name Role Phone Elizabet De León MD Primary Care Provider Brandi Armenta DO Unavailable [phone] Shanel Lowery Unavailable [phone] Active Problems Patient Care Coordination No te [...] pain 06/16/2023 Coronary artery disease invo lving circle coronary artery of circle heart with angina pectoris 06/16/2023 Trigger ring finger of right hand 02/07/2023 Abnormal cardiovascular stress test 10/13/2021 Overview (10/13/2021): Added automatically from request for surgery [id number] Dizziness 08/11/2019 Assessment & Plan (08/11/2019 9:50 PM RETAIL SERVICE SPECIALIST): More c/w lightheadedness, briefly admitted in June at [facility]. Sx resolved with IVF - Request bMRI today - CTM. He will notify me if sx return. Dupuytren's contracture of right hand 07/16/2019 Overview (07/16/2019): Added automatically from request for surgery [id number] Assessment & Plan (08/11/2019 9:46 PM RETAIL SERVICE SPECIALIST): Plan for operative release with Dr. Loera. - F/u with Dr. Loera for surgery Sensorineural hearing loss (SNHL) of both ears 0 03/08/2019 Assessment & Plan (08/11/2019 9:41 PM RETAIL SERVICE SPECIALIST): Cont f/u with ENT/ audiology Assessment & [...] 015 Assessment & Plan (08/11/2019 9:45 PM RETAIL SERVICE SPECIALIST): F/b Dr. Tinsley. Mildly elevated PSA with abnormal WILLIE. - Pt elected to continue to be screened. Dr. Tinsley advised prostate MRI if PSA were to remain elevated at or above 5. Seborrheic keratosis, inflamed 07/15/2014 Melanoma in situ of trunk 02/11/2014 Assessment & Plan (08/11/2019 9:42 PM RETAIL SERVICE SPECIALIST): Chest, s/p WLE. - Cont f/u with Dr. Canseco - Rec photoprotection, ABCDEs Seborrheic keratoses 11/12/2013 HTN (hypertension), benign 10/26/2013 Overview (09/15/2016): BENIGN HYPERTENSION Assessment & Plan (08/11/2019 9:48 PM RETAIL SERVICE SPECIALIST): Above goal today, home pressures 130-140/60-80. - Given hx of dizziness, will plan to continue losartan 100mg every day for now - He will continue to monitor his blood pressures. Dyslipidemia 10/26/2013 Overview (01/15/2018): Hyperlipidemia LDL goal < 100 Assessment & Plan (08/11/2019 9:42 PM RETAIL SERVICE SPECIALIST): Controlled on current regimen - Cont rosuvastatin 40mg every day Type 1 diabetes mellitus 10/26/2013 Overview (01/15/2018): Diabetes mellitus type 1, controlled Assessment & Plan (08/11/2019 9:41 PM RETAIL SERVICE SPECIALIST): Control is stable. F/b Dr. Armenta. Medication [...]
--- NOTE | 2025-02-17 07:32 | ED.GENADULT ---
HPI - General Adult General Chief complaint: Upper Respiratory Infection Stated complaint: cough, congestion, pain with coughing Time Seen by Provider: 02/17/25 07:02 History of Present Illness HPI narrative: 84-year-old male presents to the emergency department for evaluation for cough and congestion. Patient reports he began having ingestion on runny nose on and Monday but then developing a productive cough on Monday. Patient denies any fevers or shortness of breath. Time of evaluation patient is in no distress. Related Data Home Medications ?Medication ?Instructions ?Recorded ?Confirmed ?Last Taken ?Type Claritin 10 mg PO DAILY 07/01/19 07/01/19 Unknown History aspirin 81 mg chewable tablet 81 mg PO DAILY 07/01/19 07/01/19 Unknown History insulin glargine 100 unit/mL 20 unit subcut HS 07/01/19 07/01/19 Unknown History subcutaneous solution (Lantus U-100 Insulin) insulin lispro 100 unit/mL 1 sliding scale dose subcut 07/01/19 07/01/19 Unknown History subcutaneous solution (Humalog USEASDIRECTD U-100 Insulin) lansoprazole 30 mg capsule,delayed 30 mg PO DAILY 07/01/19 07/01/19 Unknown History release losartan 100 mg tablet 100 mg PO DAILY 07/01/19 07/01/19 Unknown History nebivolol 20 mg tablet (Bystolic) 20 mg PO DAILY 07/01/19 07/01/19 Unknown History rosuvastatin 40 mg tablet (Crestor) 40 mg PO DAILY 07/01/19 07/01/19 Unknown History Allergies Allergy/AdvReac Type Severity Reaction Status Date / Time Penicillins Allergy Unknown Hives Verified 02/17/25 06:42 Review of Systems Review of Systems: All systems reviewed & are unremarkable except as noted in HPI and below PMFSH Past Medical History Medical History (Updated 02/17/25 @ 09:10 by Cayetano Mast MD) BPH (benign prostatic hyperplasia) Glaucoma Melanoma Removed from his chest Hyperlipidemia Hypertension Seasonal allergies Diabetes Surgical History Surgical History (Updated 07/01/19 @ 23:14 by Karissa Fernandez APRN) H/O rectal polypectomy History of surgical removal of lesion Melanoma from the chest Family History Family History Mother Cerebrovascular accident Father Lung cancer Sibling Pancreatic cancer Social History Social History (Updated 07/01/19 @ 23:13 by Karissa Fernandez APRN) Social History: The patient stated he lives with his and 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 The patient wishes to be a full code. He is retired from the [employer]. 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 He has 3 children Smoking packs per day: 1 Smoking cigarettes per day: 20.0 Years smoked: 32 Smoking pack-years: 32.00 Smoking status: Former smoker Tobacco type: cigarettes Alcohol intake: former Substance use: never Substance use type: does not use Living arrangements: with family Occupation/Education: retired Gender identity (if verbalized by the patient): Male Spiritual care concerns: No Agree to blood products: Yes Exam Narrative: APPEARANCE: Well appearing, no pain, no distress, well-nourished. HEAD: normocephalic, atraumatic. EYES: PERRLA/EOMI, conjunctivae clear. NOSE: Normal no drainage EARS:TMS clear with good light reflex. THROAT: Pharynx clear, no exudate. NECK: Supple. No adenopathy, no masses. RESPIRATORY: Airway patent, respirations nonlabored. Clear to auscultation bilaterally, no rales, rhonchi, wheezing. CARDIOVASCULAR: Regular rate and rhythm without murmurs rubs or gallops. ABDOMINAL: Soft, nontender, nondistended, normal bowel sounds MUSCULOSKELETAL: Moves all extremities. Strength/ROM intact, No edema, No calf tenderness. NEURO: Alert. Cranial nerves II through XII intact. Good gait. Good coordination SKIN: Warm, dry. Normal Color Course Vital Signs Vital signs: Vital Signs Temperature 98.7 F 02/17/25 06:39 Pulse Rate 97 02/17/25 06:39 Respiratory Rate 20 02/17/25 06:39 Blood Pressure 167/113 H 02/17/25 06:39 Pulse Oximetry 95 02/17/25 06:39 Oxygen Delivery Room Air 02/17/25 06:39 Temperature 98.7 F 02/17/25 06:46 Pulse Rate 93 02/17/25 09:27 Respiratory Rate 19 02/17/25 09:27 Blood Pressure 151/69 H 02/17/25 09:27 Pulse Oximetry 96 02/17/25 09:27 Oxygen Delivery Room Air 02/17/25 06:39 Medical Decision Making MDM Narrative Medical decision making narrative: 84-year-old male present to the emergency department for evaluation for cough and congestion. Patient is afebrile with no hypoxia patient is saturating well on room air with no respiratory distress. Chest x-ray showed no acute cardiopulmonary abnormality and patient was negative for influenza RSV and for COVID. Patient did have some minor improvement with an nebulized albuterol and patient will be discharged home on Medrol inhaler along with Tessalon Perles. Patient does take Claritin daily. Patient was encouraged close follow-up with primary care physician. Suspect viral etiology versus postnasal drip and seasonal allergies Differential Diagnosis Differential Diagnosis: COVID, RSV influenza, pneumonia, pneumothorax, sinusitis, sinus congestion, seasonal allergies Vital Signs Vital Signs: Vital Signs Temperature 98.7 F 02/17/25 06:39 Pulse Rate 97 02/17/25 06:39 Respiratory Rate 20 02/17/25 06:39 Blood Pressure 167/113 H 02/17/25 06:39 Pulse Oximetry 95 02/17/25 06:39 Oxygen Delivery Room Air 02/17/25 06:39 Temperature 98.7 F 02/17/25 06:46 Pulse Rate 93 02/17/25 09:27 Respiratory Rate 19 02/17/25 09:27 Blood Pressure 151/69 H 02/17/25 09:27 Pulse Oximetry 96 02/17/25 09:27 Oxygen Delivery Room Air 02/17/25 06:39 Lab Data Lab results reviewed: Yes I reviewed the patient's lab results. Labs: Lab Results 02/17/25 Range/Units 06:51 Influenza A (RT-PCR) Negative (Negative) Influenza B (RT-PCR) Negative (Negative) RSV (RT-PCR) Negative (Negative) SARS-CoV-2 RNA (RT-PCR) Negative (Negative) Imaging Data Radiologist's impression: Impressions Chest X-Ray 02/17/25 07:39 IMPRESSION: 1. No acute cardiopulmonary disease. Discharge Plan Discharge Clinical Impression: Cough, Acute viral syndrome Patient Disposition: Home Condition: Stable Instructions: Antibiotic Form, Viral Syndrome (ED) Additional Instructions: Continue supportive treatment at home including your humidifier by bedside and antihistamines. Albuterol inhaler for shortness of breath Tessalon Perles for cough. Have close follow-up with your primary care physician. Patient Language: Micronesian Prescriptions: New benzonatate 100 mg capsule 100 mg PO TID PRN (Reason: cough) Qty: 14 0RF albuterol sulfate 90 mcg/actuation HFA aerosol inhaler 1 puff inhalation QID Qty: 6.7 0RF No Action doxycycline hyclate 100 mg capsule 100 mg PO BID 7 Days Qty: 14 0RF benzonatate 100 mg capsule 100 mg PO BID PRN (Reason: cough) Qty: 14 0RF Lantus U-100 Insulin 100 unit/mL Solution 20 unit SUBCUT HS lansoprazole 30 mg Capsule,Delayed Release(Dr/Ec) 30 mg PO DAILY aspirin 81 mg Tablet,Chewable 81 mg PO DAILY insulin lispro [Humalog U-100 Insulin] 100 unit/mL Solution 1 sliding scale dose SUBCUT USEASDIRECTD Rx Instructions: 12- 15 UNITS TID WITH MEALS AND 5 UNITS Q HS losartan 100 mg Tablet 100 mg PO DAILY rosuvastatin [Crestor] 40 mg Tablet 40 mg PO DAILY Bystolic 20 mg Tablet 20 mg PO DAILY Claritin 10 mg PO DAILY meclizine 12.5 mg tablet 6.25 mg PO TID PRN (Reason: dizziness) Qty: 20 0RF Rx Instructions: You can take 1/2 by mouth three times per day as needed for dizziness sucralfate [Carafate] 1 gram tablet 1 g PO TID Qty: 90 0RF Follow-up/Referrals: Karissa Tena OD [Primary Care Provider, Optometry]
[2025-02-17 07:33] LABS: Influenza A QL RT-PCR Negative (Negative); Influenza B QL RT-PCR Negative (Negative); RSV RNA, RT-PCR Negative (Negative); SARS-CoV-2 RNA PCR Negative (Negative)
[2025-02-17] MEDS: ALBUTEROL SULFATE NEB 2.5 MG/3 ML INH INHALATION (07:54)
[2025-02-17 07:55] VITALS: PULSE 90; RESP 20
[2025-02-17 08:03] VITALS: PULSE 95; RESP 20
[2025-02-17 08:11] VITALS: BP 103/79; PULSE 94; RESP 20; O2SAT 95
[2025-02-17 09:27] VITALS: BP 151/69; PULSE 93; RESP 19; O2SAT 96
== END 2025-02-17 09:28 | disposition home or self-care (01) ==
PROVIDERS: Emergency Medicine; Emergency Provider Emergency Medicine
DX: B34.9 Viral infection, unspecified (principal); Z20.822 Contact with and (suspected) exposure to COVID-19; E11.39 Type 2 diabetes mellitus with other diabetic ophthalmic complication; H42 Glaucoma in diseases classified elsewhere; I10 Essential (primary) hypertension; E78.5 Hyperlipidemia, unspecified; N40.0 Benign prostatic hyperplasia without lower urinary tract symptoms; Z85.820 Personal history of malignant melanoma of skin; Z86.0100 Personal history of colon polyps, unspecified; Z87.891 Personal history of nicotine dependence; Z79.4 Long term (current) use of insulin; Z79.82 Long term (current) use of aspirin; Z79.899 Other long term (current) drug therapy
CPT/HCPCS: 71045; 87637; 94640; 99283